=== PATIENT | female | born 1945 | race Caucasian/White ===

== ENCOUNTER → 2017-01-12 | Outpatient (REF) | payer MEDICARE, MEDICAID | LOC: M LAB REF 16:54 | PROVIDERS: ATTEND Podiatrist | DX: L97.412 Non-pressure chronic ulcer of right heel and midfoot with fat layer exposed (principal) ==

== ENCOUNTER → 2017-03-01 | Outpatient (REF) | payer MEDICARE, MEDICAID ==
[~2017-03-01] MED LIST: ASPI81TA85 PO; CART240C3; EZETIMIBE; GLIM1TAB; LORA10TA2; VITA100067 PO
[2017-03-01 17:52] LABS: ALBUMIN/GLOBULIN RATIO 1.29 (1.00-1.93); ALKALINE PHOSPHATASE 81 U/L (45-117); ALT/SGPT 18 U/L (12-78); ANION GAP 8 MEQ/L (8-16); AST/SGOT 13 U/L (15-37); BILIRUBIN,TOTAL 0.8 MG/DL (0.2-1.0); BLOOD UREA NITROGEN 12 MG/DL (7-18); CALCIUM LEVEL 9.4 MG/DL (8.8-10.2); CARBON DIOXIDE LEVEL 26 MEQ/L (21-32); CHLORIDE LEVEL 102 MEQ/L (98-107); CHOLESTEROL LEVEL 270 MG/DL (<200); CREATININE FOR GFR 0.63 MG/DL (0.55-1.02); GLOMERULAR FILTRATION RATE > 60.0 (>39); GLUCOSE, FASTING 138 MG/DL (83-110); POTASSIUM SERUM 4.1 MEQ/L (3.5-5.1); SODIUM LEVEL 136 MEQ/L (136-145); TOTAL PROTEIN 7.1 GM/DL (6.4-8.2); TRIGLYCERIDES LEVEL 160 MG/DL (<150)
== END ==
LOC: M SFHCLERA 10:16
PROVIDERS: ATTEND Physician Assistant
DX: E11.9 Type 2 diabetes mellitus without complications (principal); E78.2 Mixed hyperlipidemia; I10 Essential (primary) hypertension
CPT/HCPCS: 80053; 80061; 82043; 83036; G0463

== ENCOUNTER → 2017-06-01 | Outpatient (REF) | payer MEDICARE, MEDICAID ==
[2017-06-01 11:47] LABS: ALBUMIN 3.7 GM/DL (3.2-5.2); ALBUMIN/GLOBULIN RATIO 1.03 (1.00-1.93); ALKALINE PHOSPHATASE 82 U/L (45-117); ALT/SGPT 19 U/L (12-78); ANION GAP 8 MEQ/L (8-16); AST/SGOT 15 U/L (15-37); BILIRUBIN,TOTAL 0.8 MG/DL (0.2-1.0); BLOOD UREA NITROGEN 17 MG/DL (7-18); CALCIUM LEVEL 9.3 MG/DL (8.8-10.2); CARBON DIOXIDE LEVEL 29 MEQ/L (21-32); CHLORIDE LEVEL 103 MEQ/L (98-107); CHOLESTEROL LEVEL 289 MG/DL (<200); CREATININE FOR GFR 0.66 MG/DL (0.55-1.02); GLOMERULAR FILTRATION RATE > 60.0 (>39); GLUCOSE, FASTING 136 MG/DL (83-110); POTASSIUM SERUM 4.3 MEQ/L (3.5-5.1); SODIUM LEVEL 140 MEQ/L (136-145); TOTAL PROTEIN 7.3 GM/DL (6.4-8.2); TRIGLYCERIDES LEVEL 172 MG/DL (<150)
== END ==
LOC: M SFHCLERA 09:24
PROVIDERS: ATTEND Physician Assistant
DX: E78.2 Mixed hyperlipidemia (principal); E11.9 Type 2 diabetes mellitus without complications
CPT/HCPCS: 80053; 80061; 83036; G0463

== ENCOUNTER 2017-06-12 11:21 | Emergency (ER) | payer MEDICARE, MEDICAID ==
[~2017-06-12] VITALS: Ht 162.6 cm; Wt 63.6 kg
[2017-06-12] MEDS ORDERED: CART240C3 (11:32)
[2017-06-12] MEDS ORDERED: ASPI81TA85 PO (11:32)
[2017-06-12] MEDS ORDERED: VITA100067 PO (11:32)
[2017-06-12] MEDS ORDERED: GLIM1TAB (11:32)
[2017-06-12] MEDS ORDERED: LORA10TA2 (11:32)
[2017-06-12] MEDS ORDERED: EZETIMIBE (11:32)
[2017-06-12 13:39] VITALS: BP 159/72
== END 2017-06-12 13:38 | disposition home or self-care (01) ==
LOC: M ED 11:21
DX: H92.03 Otalgia, bilateral (principal); H61.23 Impacted cerumen, bilateral; I48.91 Unspecified atrial fibrillation; I25.10 Atherosclerotic heart disease of native coronary artery without angina pectoris; I50.9 Heart failure, unspecified; I25.2 Old myocardial infarction; I10 Essential (primary) hypertension; F99 Mental disorder, not otherwise specified; Z87.891 Personal history of nicotine dependence; Z79.82 Long term (current) use of aspirin; Z79.899 Other long term (current) drug therapy; Z88.1 Allergy status to other antibiotic agents; Z88.8 Allergy status to other drugs, medicaments and biological substances

== ENCOUNTER → 2017-12-04 | Outpatient (REF) | payer MEDICARE, MEDICAID ==
[2017-12-04 11:58] LABS: HEMATOCRIT 42.7 % (36.0-47.0); HEMOGLOBIN 14.8 g/dl (12.0-16.0); MEAN CORPUSCULAR HGB CONC 34.7 g/dl (32.0-36.5); MEAN CORPUSCULAR VOLUME 89.3 fl (80.0-96.0); PLATELET COUNT, AUTOMATED 338 10^3/uL (150-450); RED BLOOD COUNT 4.78 10^6/uL (4.00-5.40); RED CELL DISTRIBUTION WIDTH 13.2 % (11.5-14.5)
[2017-12-04 12:26] LABS: ALBUMIN 3.7 GM/DL (3.2-5.2); ALBUMIN/GLOBULIN RATIO 1.09 (1.00-1.93); ALKALINE PHOSPHATASE 80 U/L (45-117); ALT/SGPT 19 U/L (12-78); ANION GAP 9 MEQ/L (8-16); AST/SGOT 12 U/L (7-37); BILIRUBIN,TOTAL 0.6 MG/DL (0.2-1.0); BLOOD UREA NITROGEN 10 MG/DL (7-18); CALCIUM LEVEL 9.4 MG/DL (8.8-10.2); CARBON DIOXIDE LEVEL 26 MEQ/L (21-32); CHLORIDE LEVEL 104 MEQ/L (98-107); CHOLESTEROL LEVEL 253 MG/DL (<200); GLOMERULAR FILTRATION RATE > 60.0 (>39); GLUCOSE, FASTING 151 MG/DL (70-100); HDL CHOLESTEROL 51 MG/DL (>40); LDL CHOLESTEROL 167.4 MG/DL (<100); NON-HDL-C 202 MG/DL; POTASSIUM SERUM 4.9 MEQ/L (3.5-5.1); SODIUM LEVEL 139 MEQ/L (136-145); TOTAL PROTEIN 7.1 GM/DL (6.4-8.2); TRIGLYCERIDES LEVEL 173 MG/DL (<150)
[2017-12-04 12:46] LABS: ESTIMATED AVERAGE GLUCOSE 157 MG/DL (60-110); HEMOGLOBIN A1c 7.1 %
[2017-12-04 12:53] LABS: CREATININE, URINE 24.4 MG/DL; MALB URINE SIEMENS < 5.0 MG/L; MAU/CREAT RATIO 20.4 MCG/MG (0.0-30.0)
== END ==
LOC: M SFHCLERA 09:26
DX: E78.2 Mixed hyperlipidemia (principal); I10 Essential (primary) hypertension; E11.9 Type 2 diabetes mellitus without complications
CPT/HCPCS: 84443

== ENCOUNTER → 2018-05-16 | Outpatient (REF) | payer MEDICARE, MEDICAID ==
[2018-05-16 13:30] LABS: ESTIMATED AVERAGE GLUCOSE 146 MG/DL (60-110); HEMOGLOBIN A1c 6.7 %
[2018-05-16 13:37] LABS: ALBUMIN 3.7 GM/DL (3.2-5.2); ALKALINE PHOSPHATASE 89 U/L (45-117); ALT/SGPT 15 U/L (12-78); ANION GAP 8 MEQ/L (8-16); AST/SGOT 12 U/L (7-37); BILIRUBIN,TOTAL 0.7 MG/DL (0.2-1.0); BLOOD UREA NITROGEN 12 MG/DL (7-18); CALCIUM LEVEL 9.4 MG/DL (8.8-10.2); CARBON DIOXIDE LEVEL 28 MEQ/L (21-32); CHLORIDE LEVEL 103 MEQ/L (98-107); CHOLESTEROL LEVEL 233 MG/DL (<200); CREATININE FOR GFR 0.65 MG/DL (0.55-1.30); GLOMERULAR FILTRATION RATE > 60.0 (>39); GLUCOSE, FASTING 140 MG/DL (70-100); HDL CHOLESTEROL 52 MG/DL (>40); LDL CHOLESTEROL 151.6 MG/DL (<100); NON-HDL-C 181 MG/DL; POTASSIUM SERUM 4.5 MEQ/L (3.5-5.1); SODIUM LEVEL 139 MEQ/L (136-145); TOTAL PROTEIN 7.4 GM/DL (6.4-8.2); TRIGLYCERIDES LEVEL 147 MG/DL (<150)
== END ==
LOC: M SFHCPLAZ 11:48
DX: I10 Essential (primary) hypertension (principal); E11.9 Type 2 diabetes mellitus without complications; E78.2 Mixed hyperlipidemia
CPT/HCPCS: 80053

== ENCOUNTER → 2018-07-03 | Outpatient (REF) | payer MEDICARE, MEDICAID | LOC: M LAB REF 09:11 | DX: L97.529 Non-pressure chronic ulcer of other part of left foot with unspecified severity (principal); E11.621 Type 2 diabetes mellitus with foot ulcer; M65.872 Other synovitis and tenosynovitis, left ankle and foot | CPT/HCPCS: 88304 ==

== ENCOUNTER → 2018-12-10 | Outpatient (REF) | payer MEDICARE, MEDICAID ==
[~2018-12-10] MED LIST changes: +LORA-243; -LORA10TA2
== END ==
LOC: M LAB REF 17:12
PROVIDERS: ATTEND Surgery
DX: M87.074 Idiopathic aseptic necrosis of right foot (principal); E11.621 Type 2 diabetes mellitus with foot ulcer

== ENCOUNTER → 2019-01-22 | Outpatient (REF) | payer MEDICARE, MEDICAID ==
[2019-01-22 10:44] LABS: BASO # 0.1 10^3/uL (0.0-0.2); EOS # 0.3 10^3/uL (0.0-0.50); EOS % 3.3 % (0.0-3.0); HEMATOCRIT 42.8 % (36.0-47.0); HEMOGLOBIN 14.2 g/dl (12.0-15.5); LYMPH # 2.6 10^3/uL (1.5-4.5); LYMPH % 28.1 % (24.0-44.0); MEAN CORPUSCULAR HEMOGLOBIN 30.5 pg (27.0-33.0); MEAN CORPUSCULAR HGB CONC 33.2 g/dl (32.0-36.5); MONO # 0.7 10^3/uL (0.0-0.8); MONO % 7.5 % (0.0-5.0); NEUTROPHILS # 5.4 10^3/uL (1.8-7.7); NEUTROPHILS % 59.8 % (36.0-66.0); PLATELET COUNT, AUTOMATED 379 10^3/uL (150-450); RED BLOOD COUNT 4.65 10^6/uL (4.00-5.40); WHITE BLOOD COUNT 9.1 10^3/uL (4.0-10.0)
[2019-01-22 11:21] LABS: ALBUMIN 3.6 GM/DL (3.2-5.2); ALT/SGPT 16 U/L (12-78); BILIRUBIN,TOTAL 0.6 MG/DL (0.2-1.0); BLOOD UREA NITROGEN 11 MG/DL (7-18); CALCIUM LEVEL 9.4 MG/DL (8.8-10.2); CARBON DIOXIDE LEVEL 26 MEQ/L (21-32); CHLORIDE LEVEL 105 MEQ/L (98-107); CREATININE FOR GFR 0.64 MG/DL (0.55-1.30); GLOMERULAR FILTRATION RATE > 60.0 (>39); GLUCOSE, FASTING 148 MG/DL (70-100); POTASSIUM SERUM 4.4 MEQ/L (3.5-5.1); SODIUM LEVEL 138 MEQ/L (136-145); TOTAL PROTEIN 6.7 GM/DL (6.4-8.2)
[2019-01-22 11:44] LABS: HEMOGLOBIN A1c 7.2 %
== END ==
LOC: M SFHCPLAZ 07:52
PROVIDERS: ATTEND Physician Assistant Medical
DX: E11.621 Type 2 diabetes mellitus with foot ulcer (principal); E78.2 Mixed hyperlipidemia; I10 Essential (primary) hypertension; L97.509 Non-pressure chronic ulcer of other part of unspecified foot with unspecified severity

== ENCOUNTER → 2019-05-05 | Outpatient (CLI) | payer MEDICARE, MEDICAID ==
--- NOTE | 2019-05-05 14:39 | REP ---
Bilateral lower extremity arterial duplex Doppler ultrasound for evaluation of right foot and nonhealing ulcer: Right lower extremity: Brachial systole: 145 mmHg. Dorsalis pedis systole: 84 mmHg. BLADE CHANGER asystole: 96 mmHg. JANA: 0.64 JUANA peak flow velocity: 270 mm/sac. Monophasic. EIA peak flow velocity: 274 mm/second. Biphasic. Distal aorta peak flow velocity 75 mm/second. Peak Systolic Phasicity Velocity JOURNAL BOX INSPECTOR 194 monophasic Profunda 119 monophasic SFA prox 38 monophasic SFA mid 42 monophasic SFA dist 42 monophasic Pop 43 monophasic EDGAR prox 10 monophasic Tib/P tr 50 monophasic BLADE CHANGER pr 34 monophasic BLADE CHANGER dst 50 monophasic EDGAR dst 825 monophasic There is monophasic flow throughout the right lower extremity. There is increased flow velocity from the distal aorta into the common iliac artery. There is a very small right SFA with a revascularizing vessel at the distal SFA. There is a very slow flow in the proximal right EDGAR . Left lower extremity: Brachial systole: 148 mmHg. Dorsalis pedis systole: 110 mmHg. BLADE CHANGER systole: 110 mmHg. JANA: 0.64. JUANA peak flow velocity: 136 mm/sac. Biphasic. EIA peak flow velocity: 168 mm/sac. Biphasic. Distal aortic flow velocity 75 mm/sac. Peak Systolic Phasicity Velocity JOURNAL BOX INSPECTOR 156 biphasic Profunda 97 biphasic SFA prox 94 biphasic SFA mid 160 biphasic SFA dist 123 biphasic Pop 70 biphasic EDGAR prox 25 biphasic Tib/P tr 849 biphasic BLADE CHANGER pr 37 biphasic BLADE CHANGER dst 46 biphasic EDGAR dst 27 biphasic The there is biphasic flow throughout the left lower extremity. Moderate plaque is seen throughout, however there is no significant stenosis. There is mild disease in the left JUANA and EIA. There is a small left SFA also. Electronically Signed by Dani Ochoa MD 05/05/2019 02:30 P
== END ==
LOC: M RAD 11:16
PROVIDERS: ATTEND Physician Assistant
DX: E11.621 Type 2 diabetes mellitus with foot ulcer (principal); L97.512 Non-pressure chronic ulcer of other part of right foot with fat layer exposed; S91.105A Unspecified open wound of left lesser toe(s) without damage to nail, initial encounter; Y92.9 Unspecified place or not applicable; Y93.9 Activity, unspecified

== ENCOUNTER → 2019-06-03 | Outpatient (POV) | payer MEDICARE, MEDICAID ==
[~2019-06-03] VITALS: Ht 162.6 cm; Wt 62.7 kg
[2019-06-03 11:00] VITALS: BP 136/65
--- NOTE | 2019-06-04 13:19 | IRCOV ---
[facility] IR Consult Office Visit IR Consult Office Visit DATE: Jun 03, 2019 REASON FOR CONSULTATION/CHIEF COMPLAINT: Right medial mid foot wound with delayed healing. HISTORY OF PRESENT ILLNESS: 73-year-old female with hypertension, atrial fibrillation and diabetes presents with difficult to heal right plantar midfoot wound. Currently under the care of wound care services. Recent abnormal arterial ultrasound and JANA 0.64. 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 No prior amputations. History of left lower extremity wounds which are now closed. Patient complains of pain at the bottom of the feet with walking. No claudicatio n symptoms. No rest pain. No chest pain or shortness of breath. No fevers or chills. No orthopnea or paroxysmal nocturnal dyspnea. Patient takes 81 mg of aspirin and statin. No CELESTE inhibitor. Reports good diet. Mild exercise. ALLERGIES: Please see below. HOME MEDICATIONS: Please see below. PAST MEDICAL HISTORY: Hypertension Atrial fibrillation Pacemaker Diabetes PAST SURGICAL HISTORY: Pacemaker Right foot wound debrided and wound VAC FAMILY HISTORY: Nonsignificant. SOCIAL HISTORY: Lives alone. Independent with activities of daily living. Nonsmoker. No significant alcohol. No drugs. REVIEW OF SYSTEMS: Otherwise negative. PHYSICAL EXAMINATION: VITAL SIGNS: Please see below. GENERAL APPEARANCE: Appears well. Comfortable at rest. HEENT: No scleral icterus. RESPIRATORY: Symmetric breath sounds. CARDIOVASCULAR: Normal rate. ABDOMEN: Nondistended. Soft nontender. EXTREMITIES: Right lower extremity: Wound plantar foot; small healing. Femoral pulse 2+ popliteal pulse nonpalpable. DP/PT nonpalpable. Warm to touch. No gangrene. Left lower extremity: Warm to touch. Femoral pulse 2+ popliteal pulses 1+ DP/PT + no gangrene. NEUROLOGICAL: Alert and oriented. PSYCHIATRIC: Appropriate to circumstance. LABORATORY DATA: Please see below. Imaging: I personally reviewed the ultrasound of the bilateral lower extremities from April 2019. SFA stenosis with monophasic waveforms. In comparison left lower extremity biphasic throughout. ASSESSMENT/PLAN: 74-year-old female with diabetes and hypertension presenting with nonhealing right foot wound and abnormal arterial ultrasound. I agree she would benefit from diagnostic angiogram and intervention as appropriate, all in the same session. We will schedule her for the procedure to be done under moderate sedation. I spent 30 minutes in consultation with the patient. Thank you for this referral. Allergies Coded Allergies: MS - Ciprofloxacin (Verified Allergy, Intermediate, pt forgot, 06/12/17) MS - Metformin and Related (Verified Allergy, Intermediate, anxiety, 06/12/17) Home Medications Scheduled Aspirin (Aspir 81), 81 MG PO DAILY, (Reported) Vitamin D (Vitamin D), 4,000 UNIT PO DAILY, (Reported) Miscellaneous Medications Diltiazem HCl (Cartia Xt), (Reported) Glimepiride (Glimepiride), (Reported) Loratadine (Loratadine), (Reported) [Ezetimibe], (Reported) VS, I&O, 24H, Fishbone Vital Signs/I&O Vital Signs Date Time Temp Pulse Resp B/P (MAP) Pulse Ox O2 Delivery O2 Flow Rate FiO2 06/03/19 11:00 97.5 90 16 136/65 (88) 97 LORRIE ROMEO MD Jun 04, 2019 13:19
== END ==
LOC: M IRPOV 10:38
PROVIDERS: ATTEND Radiology Diagnostic Radiology
DX: I10 Essential (primary) hypertension (principal); I48.91 Unspecified atrial fibrillation; E11.622 Type 2 diabetes mellitus with other skin ulcer; R93.89 Abnormal findings on diagnostic imaging of other specified body structures; Z79.82 Long term (current) use of aspirin; Z95.0 Presence of cardiac pacemaker

== ENCOUNTER → 2019-06-12 | Outpatient (REF) | payer MEDICARE, MEDICAID ==
[2019-06-12 11:07] LABS: ALBUMIN 3.6 GM/DL (3.2-5.2); ALT/SGPT 16 U/L (12-78); BILIRUBIN,TOTAL 0.6 MG/DL (0.2-1.0); BLOOD UREA NITROGEN 12 MG/DL (7-18); CALCIUM LEVEL 9.6 MG/DL (8.8-10.2); CARBON DIOXIDE LEVEL 28 MEQ/L (21-32); CHLORIDE LEVEL 105 MEQ/L (98-107); CHOLESTEROL LEVEL 224 MG/DL (<200); CHOLESTEROL RISK RATIO 4.226 (<5); CREATININE FOR GFR 0.75 MG/DL (0.55-1.30); GLOMERULAR FILTRATION RATE > 60.0 (>39); GLUCOSE, FASTING 149 MG/DL (70-100); HDL CHOLESTEROL 53 MG/DL (>40); LDL CHOLESTEROL 144 MG/DL (<100); NON-HDL-C 171 MG/DL; POTASSIUM SERUM 4.8 MEQ/L (3.5-5.1); SODIUM LEVEL 139 MEQ/L (136-145); TRIGLYCERIDES LEVEL 135 MG/DL (<150)
[2019-06-12 11:18] LABS: PTH INTACT 83.8 PG/ML (18.5-88.0); TOTAL 25(OH) VITAMIN D 57.9 NG/ML (30.0-100.0)
[2019-06-12 12:50] LABS: HEMOGLOBIN A1c 6.6 %
== END ==
LOC: M SFHCPLAZ 08:58
PROVIDERS: ATTEND Physician Assistant Medical
DX: E11.621 Type 2 diabetes mellitus with foot ulcer (principal); E78.2 Mixed hyperlipidemia; E55.9 Vitamin D deficiency, unspecified; Z79.899 Other long term (current) drug therapy; Z79.82 Long term (current) use of aspirin

== ENCOUNTER → 2019-06-26 | Outpatient (CLI) | payer MEDICARE, MEDICAID ==
[~2019-06-26] MED LIST changes: +FLON1SPR NARES; -GLIM1TAB; +GLIM1TAB4; +HEPARIN 1,000 UNITS/ML 10ML VIAL (FOR RADIOLOGY& DIALYSIS ONLY) As Ordered ONE; +ISOVUE-300 61% 50ML VIAL (Q9967) As Ordered ONE; +LIDOCAINE 1% MDV 20ML VIAL As Ordered ONE; +MIDAZOLAM INJ 2 MG/2 ML VIAL (J2250) As Ordered ONE; +diphenhydrAMINE INJ 50MG/ML VIAL (J1200) As Ordered ONE; +fentaNYL 100 MCG/2 ML INJECTION (J3010) As Ordered ONE
--- NOTE | 2019-06-26 07:28 | IRHP ---
[facility] IR Pre-Procedure H & P General Date of Service: Jun 26, 2019 Procedure: Same Day Surgery Interval History and Physical I have seen the patient and reviewed last H & P performed within 30 days. There is no significant interval change. History of Present Illness Chief Complaint The patient is a 74-year-old female admitted with a reason for visit of PAD. PRE-PROCEDURE DIAGNOSIS: PAD HEART: normal rate. LUNGS: normal breathing at rest. ASA Classification ASA Classification: III-Severe systemic dis. Mallampati Score: II NPO: Yes Problems with prior sedation: No Obstructive Sleep Apnea: No Plan moderate sedation Allergies Coded Allergies: MS - Ciprofloxacin (Verified Allergy, Intermediate, pt forgot, 06/12/17) MS - Metformin and Related (Verified Allergy, Intermediate, anxiety, 06/12/17) Home Medications Scheduled Aspirin (Aspir 81), 81 MG PO DAILY, (Reported) Vitamin D (Vitamin D), 4,000 UNIT PO DAILY, (Reported) Miscellaneous Medications Diltiazem HCl (Cartia Xt), (Reported) Glimepiride (Glimepiride), (Reported) Loratadine (Loratadine), (Reported) [Ezetimibe], (Reported) LORRIE ROMEO MD Jun 26, 2019 07:28
--- NOTE | 2019-06-26 09:27 | POST-OPPD ---
Postoperative Procedure Note Date Of Procedure: Jun 26, 2019 Time Of Procedure: 09:24 PREOPERATIVE DIAGNOSIS: non healing right lower extremity wound POSTOPERATIVE DIAGNOSIS: non healing right lower extremity wound FINDINGS: SFA occlusion. patent popliteal artery and 3 vessel run off to foot PROCEDURE: left groin access. right leg angiogram. failed antegrade sfa recanalization. patient will be bought back for retrograde access. SURGEON: sofiya ANESTHESIA: mod sed ESTIMATED BLOOD LOSS: < 5 ml COMPLICATIONS: none POSTOPERATIVE CONDITION: stable LORRIE ROMEO MD Jun 26, 2019 09:27
[2019-06-26 14:00] VITALS: BP 154/65
--- NOTE | 2019-06-26 16:21 | REP ---
IR right leg angiogram. IR pelvic angiogram. Selective right iliac artery catheterization. Selective right common femoral artery catheterization. IR diagnostic below-knee runoff. IR attempted antegrade SFA recanalization. Clinical Information: Non healing right lower extremity wounds. Physician: Dr Castillo.Procedure: The patient was advised of the benefits, risks, and alternatives of the procedure and informed consent was obtained.A time out was performed with verification of the patient's name, MRN, site of procedure, and type of procedure to be performed. The patient was positioned in the supine position on the angiographic table. The site was prepped and draped in the usual sterile fashion.Moderate sedation was performed by the physician including the presence of an independent trained observer that assisted in monitoring the patient's level of consciousness and physiological status. Following the administration of Fentanyl and Versed, the physician spent 60 minutes of continuous [id number]-gd-[id number] time with the patient. A policy director radiograph reveals no gross abnormality. The left femoral artery was accessed with a micropuncture kit. A [employer] wire was advanced into the aorta. The micropuncture sheath was exchanged over the wire for a a 6-Lithuanian vascular sheath. A 5-Lithuanian flush catheter was advanced over the wire and used to catheterize the abdominal aorta. A pelvic arteriogram was performed. This demonstrates atherosclerotic dilation of the infrarenal abdominal aorta. Patent bilateral common iliac, internal iliac and external iliac arteries. Patent left superficial femoral artery and profunda femoris. Occluded right superficial femoral artery. Patent right profunda femoris. A Glidewire was advanced through the flush catheter and used to gain up and over access into the right common iliac artery. The short sheath was exchanged over the wire for a a long sheath which was placed up and over the aortic bifurcation, into the left common iliac artery. A right leg angiogram was performed and this demonstrates patent right common femoral artery. Complete occlusion of the right superficial femoral artery and enlarged collaterals in the thigh. Patent profunda femoris. With the sheath in this location, follow-up arteriogram was performed further down the leg. This demonstrates reconstitution of the popliteal artery via numerous collaterals. Patent proximal, mid and distal popliteal artery. Patent proximal anterior tibial, tibioperoneal trunk, peroneal and posterior tibial artery. A below knee runoff angiogram was performed and this demonstrates patent three-vessel runoff to the right foot. There is slow flow in the runoff vessels due to complete SFA occlusion. A glide cath in conjunction with a Glidewire was used to try to recanalized the occluded superficial femoral artery. Contrast injected through the diagnostic catheter confirms catheterization of a tiny collateral vessel and not the poarch SFA. There is extravasation of contrast in the soft tissues. The diagnostic catheter was retracted back and a follow-up arteriogram was performed which demonstrates preserved flow in the right common femoral artery and collateral vessels in the thigh. A follow-up arteriogram was performed in the distal thigh and below knee and this demonstrates preserved flow in the popliteal artery and three runoff vessels. The catheter was removed. The long sheath was exchanged over the wire for a short sheath. A 6-Lithuanian Mynx device was used to close the left groin arteriotomy and the sheath was removed. Hemostasis achieved and a sterile dressing was applied to the site. Patient tolerated the procedure well. The patient was transferred to PRU in stable condition. Prior to discharge, the patient's thigh is normal in color, soft, and nontender. Complications: None. Estimated blood loss: Less than 5 ml. Impression: 1. Right leg angiogram demonstrates complete superficial femoral artery occlusion. Distal reconstitution of the popliteal artery via collaterals. Patent good sized popliteal artery and patent three-vessel runoff to the right foot. 2. Unsuccessful antegrade SFA recanalization. The patient will be brought back for retrograde access and attempt at retrograde recanalization. Thank you this referral. Electronically Signed by Darlene Castillo MD 06/26/2019 04:19 P
== END ==
LOC: M IRPRO 07:11
PROVIDERS: ATTEND Radiology Diagnostic Radiology
DX: I70.239 Atherosclerosis of native arteries of right leg with ulceration of unspecified site (principal); I70.92 Chronic total occlusion of artery of the extremities; Z88.1 Allergy status to other antibiotic agents; Z88.8 Allergy status to other drugs, medicaments and biological substances; Z79.82 Long term (current) use of aspirin
CPT/HCPCS: 36245; 75716; 75774; 99152; 99153; C1760; C1769; C1887; C1894; G0269; J1200; J2250; J3010; Q9967

== ENCOUNTER → 2019-07-07 | Outpatient (CLI) | payer MEDICARE, MEDICAID ==
[~2019-07-07] MED LIST changes: +CLOPIDOGREL 75 MG TAB PO SCH; +GLIM1TAB2; -GLIM1TAB4; +PERCOCET 5MG/325MG TAB As Ordered ONE
--- NOTE | 2019-07-07 07:17 | IRHP ---
[facility] IR Pre-Procedure H & P General Date of Service: Jul 07, 2019 Procedure: Same Day Surgery Interval History and Physical I have seen the patient and reviewed last H & P performed within 30 days. There is no significant interval change. History of Present Illness Chief Complaint The patient is a 74-year-old female admitted with a reason for visit of Sfa Occlusion. PRE-PROCEDURE DIAGNOSIS: PAD HEART: normal rate. LUNGS: normal breathing at rest. ASA Classification ASA Classification: III-Severe systemic dis. Mallampati Score: I NPO: Yes Problems with prior sedation: No Obstructive Sleep Apnea: No Plan moderate sedation Allergies Coded Allergies: MS - Ciprofloxacin (Verified Allergy, Intermediate, pt forgot, 06/12/17) MS - Metformin and Related (Verified Allergy, Intermediate, anxiety, 06/12/17) Home Medications Scheduled Aspirin (Aspir 81), 81 MG PO DAILY, (Reported) Vitamin D (Vitamin D), 4,000 UNIT PO DAILY, (Reported) Miscellaneous Medications Diltiazem HCl (Cartia Xt), (Reported) Glimepiride (Glimepiride), (Reported) Loratadine (Loratadine), (Reported) [Ezetimibe], (Reported) VS, I&O, 24H, Fishbone Vital Signs/I&O Vital Signs Date Time Temp Pulse Resp B/P (MAP) Pulse Ox O2 Delivery O2 Flow Rate FiO2 07/07/19 07:04 97.1 73 18 95 Room Air LORRIE ROMEO MD Jul 07, 2019 07:17
--- NOTE | 2019-07-07 14:47 | REP ---
IR right leg angiogram. IR Selective right iliac artery catheterization. IR Recanalization of chronic right superficial femoral artery occlusion. IR right Superficial femoral artery angioplasty. IR right popliteal artery angioplasty. IR right popliteal artery stenting. IR right superficial femoral artery stenting. IR Diagnostic right below-knee runoff. IR Moderate sedation. Clinical Information: Non healing right lower extremity wounds. Peripheral arterial disease. Physician: Dr Castillo.Procedure: The patient was advised of the benefits, risks, and alternatives of the procedure and informed consent was obtained.A time out was performed with verification of the patient's name, MRN, site of procedure, and type of procedure to be performed. The patient was positioned in the supine position on the angiographic table. The site was prepped and draped in the usual sterile fashion.Moderate sedation was performed by the physician including the presence of an independent trained observer who assisted in monitoring the patient's level of consciousness and physiological status. Following the administration of Fentanyl and Versed, the physician spent 120 minutes of continuous [id number] time with the patient. A dielectric machine operator radiograph reveals no gross abnormality. The left femoral artery was accessed with a micropuncture kit. A [employer] wire was advanced into the aorta. The micropuncture sheath was exchanged over the wire for a a 6-Cambodian vascular sheath. A 5-Cambodian flush catheter was advanced over the wire and used to catheterize the abdominal aorta. The catheter in conjunction with a Glidewire was used to gain up and over access into the right common femoral artery. The flush catheter was exchanged over the wire for a Navicross crossing catheter. The catheter in conjunction with the wire was used to catheterize in the left upper thigh. An arteriogram was performed and this demonstrates catheterization of a large thigh collateral. The superficial femoral artery is not seen. This catheter was retracted back into the external iliac artery. An arteriogram was performed and this demonstrates large branches of profunda femoris and other collaterals. The origin of the superficial femoral artery is undetectable. The Navicross in conjunction with a Glidewire was used to probe the origin of the superficial femoral artery. However, repeatedly falls into large collaterals and profunda femoris branches. Therefore a micro catheter and micro wire were inserted through the diagnostic catheter and used to subselectivily catheterize a third order branch in the upper thigh. An Arteriogram was performed and this demonstrates catheterization of a collateral branch. There is reconstitution of the main popliteal artery from this collateral. The micro catheter and micro wire were retracted and used to sub selectively catheterize a different branch in the thigh. An arteriogram was performed and this demonstrates catheterization of a collateral vessel. No ramona SFA or popliteal supply from this collateral. The micro catheter and micro wire were removed. The navicross catheter in conjunction with a Glidewire was again used to probe the origin of the superficial femoral artery. The glide wire slid into a vessel along expected course of SFA and the catheter was advanced over the wire. An arteriogram was performed from this point and demonstrates catheterization of a suitable size vessel which does not appear to be a collateral and follows the path of the SFA. There is complete occlusion from this point forward. No extravasation in the thigh. A micro catheter and micro wire were then advanced through the diagnostic catheter and used to recanalize the mid and distal superficial femoral artery. The micro wire was removed, an arteriogram was performed through the micro catheter which demonstrates catheterization of the distal popliteal artery. Good forward flow in the distal popliteal artery. No extravasation in the thigh. A follow-up arteriogram was performed below the knee and demonstrates good three-vessel runoff from the popliteal artery all the way to the foot. The crossing catheter was advanced over the micro catheter however met resistance in the chronically occluded mid and distal superficial femoral artery. Therefore, the crossing catheter and micro catheter were removed over a micro wire. A 4 x 220 mm Simone balloon was advanced over the wire under fluoroscopy guidance and used to angioplasty the distal superficial femoral artery and popliteal artery. Heparin was administered. The balloon was then deflated under fluoroscopy guidance and retracted into the mid and proximal superficial femoral artery. Angioplasty was performed through the mid and proximal superficial femoral artery. The balloon was then deflated and retracted back to the common femoral artery. Angioplasty was performed of the proximal superficial femoral artery and common femoral artery. The balloon was then deflated and removed over the wire under fluoroscopy guidance. The crossing catheter was advanced over the wire under fluoroscopy guidance into the popliteal artery. The micro wire was removed and an 035 wire was advanced through the diagnostic catheter into the popliteal artery. The short vascular sheath was removed over the wire and a long vascular sheath was advanced over the wire under fluoroscopy guidance into the left common femoral artery. Post angioplasty arteriogram was performed in the proximal thigh. This demonstrates there is now flow within the proximal and mid superficial femoral artery. No dissection, spasm or acute injury. No extravasation. Further follow-up arteriogram was performed down the leg with the sheath in the same location in the left common femoral artery. This demonstrates flow in the mid and distal superficial femoral artery and popliteal artery. No extravasation, spasm, distal emboli or extravasation. Patent proximal runoff vessels. A 6 x 120 mm Cortney stent was then advanced under fluoroscopy guidance over the wire and positioned in the distal superficial femoral artery/proximal popliteal artery. This was deployed under fluoroscopy guidance. A second 6 x 120 mm cortney stent was advanced over the wire under fluoroscopy guidance, overlapped with the original stent and deployed in the mid superficial femoral artery. A third 6 x 120 mm balloon Cortney stent was advanced over the wire under fluoroscopy guidance and deployed in the proximal superficial femoral artery. The origin of the profunda femoris was spared. A 6 x 200 mm [place] angioplasty balloon was then advanced over the wire under fluoroscopy guidance into the distal SFA proximal popliteal artery. This was used to angioplasty within the self-expanding stent and popliteal artery. The balloon was deflated and retracted back to the mid and proximal SFA. The balloon was used to angioplasty through the stents in the superficial femoral artery. Further heparin was administered. The balloon was deflated under fluoroscopy guidance and used to angioplasty within the stent in the proximal superficial femoral artery and common femoral artery. The balloon was deflated under fluoroscopy guidance and removed over the wire. Post stent and post angioplasty arteriograms were performed of the left leg. This demonstrates good forward flow in the superficial femoral artery and profunda femoris. No arterial injury, extravasation or distal emboli. A follow-up arteriogram was performed further down the leg and this demonstrates good forward flow in the mid and distal superficial femoral artery and the popliteal artery. No arterial spasm, dissection, extravasation or distal emboli. A final below-knee runoff was performed with the sheath in the same location in the common femoral artery and this demonstrates good flow in the three runoff vessels below the knee all the way to the foot. No distal emboli. No extravasation. The sheath was removed over the wire and exchanged for a short 6-Cambodian vascular sheath. The wire was removed. A 6-Cambodian Mynx device was deployed per protocol. Hemostasis achieved and a sterile dressing was applied to the site. Patient tolerated the procedure well and was transferred to PRU in stable condition. Complications: None. Estimated blood loss: Less than 5 ml. Impression: 1. 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 2. Successful recanalization of the right superficial femoral artery and proximal popliteal artery. 3. Successful angioplasty of the right superficial femoral artery and popliteal artery. 4. Successful stent placement in the right superficial femoral artery. 5. Preserved three-vessel runoff to the right foot. 6. Patient to follow-up in IR clinic in 2 weeks. Thank you for this referral. Electronically Signed by Darlene Castillo MD 07/07/2019 02:45 P
[2019-07-07 15:30] VITALS: BP 112/60
--- NOTE | 2019-07-08 14:29 | POST-OPPD ---
Postoperative Procedure Note Date Of Procedure: Jul 07, 2019 Time Of Procedure: 14:29 please see full report under imaging tab LORRIE ROMEO MD Jul 08, 2019 14:29
== END ==
LOC: M IRPRO 06:28
PROVIDERS: ATTEND Radiology Diagnostic Radiology
DX: I70.92 Chronic total occlusion of artery of the extremities (principal); Z79.899 Other long term (current) drug therapy; Z79.82 Long term (current) use of aspirin
CPT/HCPCS: 37226; 75710; 99152; 99153; C1725; C1760; C1769; C1874; C1887; C1894; J1200; J2250; J3010; Q9967

== ENCOUNTER → 2019-07-22 | Outpatient (POV) | payer MEDICARE, MEDICAID ==
[~2019-07-22] VITALS: Ht 162.6 cm; Wt 62.7 kg
[~2019-07-22] MED LIST changes: -CLOPIDOGREL 75 MG TAB PO SCH; -HEPARIN 1,000 UNITS/ML 10ML VIAL (FOR RADIOLOGY& DIALYSIS ONLY) As Ordered ONE; -ISOVUE-300 61% 50ML VIAL (Q9967) As Ordered ONE; -LIDOCAINE 1% MDV 20ML VIAL As Ordered ONE; -MIDAZOLAM INJ 2 MG/2 ML VIAL (J2250) As Ordered ONE; -PERCOCET 5MG/325MG TAB As Ordered ONE; -diphenhydrAMINE INJ 50MG/ML VIAL (J1200) As Ordered ONE; -fentaNYL 100 MCG/2 ML INJECTION (J3010) As Ordered ONE
[2019-07-22 13:50] VITALS: BP 165/71
[2019-07-22 14:20] VITALS: BP 130/68
--- NOTE | 2019-07-23 09:50 | IRPN ---
[facility] IR Progress Note IR Progress Note DATE: Jul 22, 2019 FOLLOW-UP: 2 weeks status post right leg revascularization, angioplasty and stenting of superficial femoral artery and popliteal artery. Patient has since graduated from wound care with complete healing of the right lower extremity wound. Patient is doing well. No pain, swelling, fevers or chills. ON EXAMINATION: Left groin access site, no swelling, no pulsatile mass, no hematoma. Right lower extremity is slightly more edematous than the left lower extremity; this is chronic. No wounds. Warm to touch. Skin normal. Femoral pulse 2+ popliteal pulse 2+ DP/PT +. Left lower extremity: No edema. No wounds. Warm to touch. Skin normal. Femoral pulse 2+ popliteal pulse 2+ DP/PT + IMPRESSION: Doing well status post right leg revascularization. No pain or wounds in the left leg. Advised patient on good diet, exercise program, blood pressure control, cholesterol control, compliance with aspirin, Plavix, statins and antihypertensives. Will follow up in 6 months time or as needed. Thank you for this referral. Allergies Coded Allergies: erythromycin base (Verified Allergy, Severe, HIVES AND THROAT CLOSES, 07/04/19) Penicillins (Verified Allergy, Intermediate, THROAT CLOSES AND HIVES, 07/04/19) vancomycin (Verified Allergy, Intermediate, RIGORS, 07/04/19) sulfamethoxazole (Verified Adverse Reaction, Intermediate, KIDNEY DAMAGE, 07/04/19) trimethoprim (Verified Adverse Reaction, Intermediate, KIDNEY DAMAGE, ) VS,Fishbone, I+O VS, Fishbone, I+O Vital Signs Date Time Temp Pulse Resp B/P (MAP) Pulse Ox O2 Delivery O2 Flow Rate FiO2 07/22/19 10:30 97.2 68 18 118/51 (73) 93 Room Air Allergies Coded Allergies: MS - Ciprofloxacin (Verified Allergy, Intermediate, pt forgot, 06/12/17) MS - Metformin and Related (Verified Allergy, Intermediate, anxiety, 06/12/17) VS,Fishbone, I+O VS, Fishbone, I+O Vital Signs Date Time Temp Pulse Resp B/P (MAP) Pulse Ox O2 Delivery O2 Flow Rate FiO2 07/22/19 14:20 130/68 (88) 07/22/19 13:50 98.5 90 16 96 Room Air LORRIE ROMEO MD Jul 23, 2019 09:50
== END ==
LOC: M IRPOV 13:57
PROVIDERS: ATTEND Radiology Diagnostic Radiology
DX: Z48.812 Encounter for surgical aftercare following surgery on the circulatory system (principal); Z88.0 Allergy status to penicillin; Z88.1 Allergy status to other antibiotic agents; Z88.8 Allergy status to other drugs, medicaments and biological substances

== ENCOUNTER → 2019-10-21 | Outpatient (POV) | payer MEDICARE, MEDICAID ==
[~2019-10-21] VITALS: Ht 162.6 cm; Wt 62.3 kg
[~2019-10-21] MED LIST changes: -GLIM1TAB2; +GLIM1TAB4
[2019-10-21 14:35] VITALS: BP 138/69
--- NOTE | 2019-10-22 11:40 | IRPN ---
[facility] IR Progress Note IR Progress Note DATE: Oct 21, 2019 FOLLOW-UP: Status post right leg revascularization by myself in June 2019 for nonhealing ulcers. Patient doing well. Denies intermittent claudication. Denies rest pain. Denies new ulcers. Describes mild swelling in the right leg and feels this is asymmetric to the left leg. ON EXAMINATION: Right lower extremity: Skin color normal, warm to touch. Femoral pulse 2+ popliteal pulse 2+ DP PT 2+ . no visible varicosities. Left lower; skin normal. Warm to touch. Femoral pulse 2+ popliteal pulse 2+ DP PT +. IMPRESSION: Doing well status post right leg revascularization for nonhealing ul cers. No pain or new ulcers. Continue aspirin and Plavix. Patient is on antihypertensive, antidiabetic medication and cholesterol medication. We discussed importance of good diet, diabetes control, exercise and good control of cholesterol. Continue annual follow-up. For the leg swelling, will obtain a venous reflux study to look for venous reflux. Thank you for this referral CC Dr. Allen Allergies Coded Allergies: MS - Ciprofloxacin (Verified Allergy, Intermediate, pt forgot, 06/12/17) MS - Metformin and Related (Verified Allergy, Intermediate, anxiety, 06/12/17) VS,Fishbone, I+O VS, Fishbone, I+O Vital Signs Date Time Temp Pulse Resp B/P (MAP) Pulse Ox O2 Delivery O2 Flow Rate FiO2 10/21/19 14:35 97.7 81 18 138/69 (92) 96 Room Air LORRIE ROMEO MD Oct 22, 2019 11:40
== END ==
LOC: M IRPOV 13:45
PROVIDERS: ATTEND Radiology Diagnostic Radiology
DX: I73.9 Peripheral vascular disease, unspecified (principal)

== ENCOUNTER → 2019-10-29 | Outpatient (CLI) | payer MEDICARE, MEDICAID ==
--- NOTE | 2019-10-29 14:18 | REP ---
Clinical: Superficial varicosities. Technique: Real time donis scale and color Doppler evaluation of the right lower extremity using linear high frequency transducer including reflux evaluation. Findings: Evaluation of the right lower extremity demonstrates no evidence for deep venous thrombosis. Few nonspecific right groin lymph nodes are identified along with suspected Ruiz's cyst in the popliteal fossa measuring 4.1 x 0.7 x 1.6 cm. Reflux evaluation demonstrates no significant reflux through the superficial system and only very minimal focal reflux in the distal femoral vein. Impression: 1. No evidence for deep venous thrombosis. 2. No significant reflux. 3. Small Ruiz's cyst in the popliteal fossa. 4. Few nonspecific lymph nodes in the right groin. Electronically Signed by Francisco James MD 10/29/2019 02:10 P
== END ==
LOC: M RAD 12:27
PROVIDERS: ATTEND Radiology Diagnostic Radiology
DX: I83.11 Varicose veins of right lower extremity with inflammation (principal)

== ENCOUNTER → 2019-11-12 | Outpatient (CLI) | payer MEDICARE, MEDICAID ==
--- NOTE | 2019-11-12 15:51 | REPMRS ---
Patient History The patient states she has not had a clinical breast exam in over a year. Patient is postmenopausal. No known family history of cancer. No Hormone Replacement Therapy Digital Woman Screen Mammo: November 12, 2019 - Exam #: [id number] Bilateral CC and MLO view(s) were taken. Technologist: Vivienne Kumar, Technologist Prior study comparison: December 09, 2015, digital bilateral screening mammo, performed at [facility]. June 2014, digital bilateral screening mammo, performed at [facility]. June 11, 2013, bilateral digital woman screen mammo, performed at [facility]. FINDINGS: There are scattered fibroglandular densities. There is a pacemaker power plant projecting over the left axilla on the MLO view. There has been no change in the appearance of the mammogram from the prior studies. There is a mild amount of scattered fibroglandular density which is fairly symmetric. There is no interval development of dominant mass, architectural distortion, or grouped microcalcification suggestive of malignancy. 3-D tomosynthesis shows no additional findings. Assessment: BI-RADS/ACR category 2 mammogram. Benign Findings. Recommendation Routine screening mammogram of both breasts in 1 year (for women over age 40). This patient's Lifetime Breast Cancer Risk is estimated at 3.4 %. This mammogram was interpreted with the aid of an FDA-approved computer-aided dectection system. Electronically Signed By: Gallo Garcia MD 11/12/19 [id number]
== END ==
LOC: M WHC 14:06
PROVIDERS: ATTEND Physician Assistant Medical
DX: Z12.31 Encounter for screening mammogram for malignant neoplasm of breast (principal); M81.0 Age-related osteoporosis without current pathological fracture; Z78.0 Asymptomatic menopausal state

== ENCOUNTER → 2020-02-11 | Outpatient (REF) | payer MEDICARE, MEDICAID ==
[2020-02-11 15:54] LABS: ALBUMIN 3.8 GM/DL (3.2-5.2); ALT/SGPT 20 U/L (12-78); BILIRUBIN,TOTAL 0.5 MG/DL (0.2-1.0); BLOOD UREA NITROGEN 17 MG/DL (7-18); CALCIUM LEVEL 9.6 MG/DL (8.8-10.2); CARBON DIOXIDE LEVEL 28 MEQ/L (21-32); CHLORIDE LEVEL 107 MEQ/L (98-107); CPK CREATINE PHOSPHOKINASE 50 U/L (26-192); CREATININE FOR GFR 0.78 MG/DL (0.55-1.30); GLOMERULAR FILTRATION RATE > 60.0 (>39); GLUCOSE, FASTING 127 MG/DL (70-100); HEMOGLOBIN A1c 6.6 %; POTASSIUM SERUM 4.4 MEQ/L (3.5-5.1); SODIUM LEVEL 140 MEQ/L (136-145); TOTAL PROTEIN 7.4 GM/DL (6.4-8.2)
[2020-02-11 16:04] LABS: PTH INTACT 68.7 PG/ML (18.5-88.0); TOTAL 25(OH) VITAMIN D 58.3 NG/ML (30.0-100.0)
== END ==
LOC: M SFHCPLAZ 13:58
PROVIDERS: ATTEND Physician Assistant Medical
DX: E78.2 Mixed hyperlipidemia (principal); E55.9 Vitamin D deficiency, unspecified; E11.621 Type 2 diabetes mellitus with foot ulcer
CPT/HCPCS: 36415; 80053; 82306; 82550; 83036; 83970; G0463

== ENCOUNTER → 2020-04-20 | Outpatient (POV) | payer MEDICARE, MEDICAID ==
[~2020-04-20] MED LIST changes: -ASPI81TA85 PO; +ASPI81TA86 PO
--- NOTE | 2020-05-20 14:23 | IRPN ---
[facility] IR Progress Note IR Progress Note DATE: Apr 20, 2020 Patient agreed to this telephone follow-up. Duration of call was 15 minutes. FOLLOW-UP: 10 month follow-up status post right lower extremity revascularization for nonhealing right lower extremity wound. No further right lower extremity swelling, pain or ulcer. No intermittent claudication or rest pain. Patient states she is doing well. She continues on aspirin and Plavix. IMPRESSION: Doing well status post right lower extremity revascularization for nonhealing ulcers. No new ulcers. Continue aspirin and Plavix. Continue good diabetes control, exercise, good diet, aspirin and Plavix. We will continue annual follow-up for this patient. Thank you for this referral CC Dr. Allen Allergies Coded Allergies: MS - Ciprofloxacin (Verified Allergy, Intermediate, pt forgot, 06/12/17) MS - Metformin and Related (Verified Allergy, Intermediate, anxiety, 06/12/17) LORRIE ROMEO MD May 20, 2020 14:23
== END ==
LOC: M IRPOV 15:00
PROVIDERS: ATTEND Radiology Diagnostic Radiology
DX: Z48.812 Encounter for surgical aftercare following surgery on the circulatory system (principal); Z79.01 Long term (current) use of anticoagulants; Z79.82 Long term (current) use of aspirin; E11.9 Type 2 diabetes mellitus without complications; Z88.1 Allergy status to other antibiotic agents; Z88.8 Allergy status to other drugs, medicaments and biological substances

== ENCOUNTER → 2020-11-29 | Outpatient (REF) | payer MEDICARE, MEDICAID ==
[2020-11-29 10:26] LABS: BASO # 0.1 10^3/uL (0.0-0.2); BASO % 1.3 % (0.0-1.0); EOS # 0.4 10^3/uL (0.0-0.5); EOS % 5.3 % (0.0-3.0); HEMATOCRIT 43.5 % (36.0-47.0); HEMOGLOBIN 14.6 g/dl (12.0-15.5); LYMPH # 2.7 10^3/uL (1.5-5.0); LYMPH % 35.8 % (24.0-44.0); MEAN CORPUSCULAR HEMOGLOBIN 30.7 pg (27.0-33.0); MEAN CORPUSCULAR HGB CONC 33.6 g/dl (32.0-36.5); MEAN CORPUSCULAR VOLUME 91.4 fl (80.0-96.0); MONO # 0.6 10^3/uL (0.0-0.8); MONO % 7.7 % (2.0-8.0); NEUTROPHILS # 3.8 10^3/uL (1.5-8.5); NEUTROPHILS % 49.5 % (36.0-66.0); PLATELET COUNT, AUTOMATED 336 10^3/uL (150-450); RED BLOOD COUNT 4.76 10^6/uL (4.00-5.40); WHITE BLOOD COUNT 7.6 10^3/uL (4.0-10.0)
[2020-11-29 10:50] LABS: ALBUMIN 3.6 GM/DL (3.2-5.2); ALT/SGPT 13 U/L (12-78); BILIRUBIN,TOTAL 0.5 MG/DL (0.2-1.0); BLOOD UREA NITROGEN 10 MG/DL (7-18); CALCIUM LEVEL 9.3 MG/DL (8.8-10.2); CARBON DIOXIDE LEVEL 29 MEQ/L (21-32); CHLORIDE LEVEL 106 MEQ/L (98-107); CHOLESTEROL LEVEL 223 MG/DL (<200); CHOLESTEROL RISK RATIO 4.129 (<5); CREATININE FOR GFR 0.66 MG/DL (0.55-1.30); GLOMERULAR FILTRATION RATE > 60.0 (>39); GLUCOSE, FASTING 135 MG/DL (70-100); HDL CHOLESTEROL 54 MG/DL (>40); LDL CHOLESTEROL 143 MG/DL (<100); NON-HDL-C 169 MG/DL; POTASSIUM SERUM 4.9 MEQ/L (3.5-5.1); SODIUM LEVEL 139 MEQ/L (136-145); TOTAL PROTEIN 6.9 GM/DL (6.4-8.2); TRIGLYCERIDES LEVEL 130 MG/DL (<150)
[2020-11-29 11:02] LABS: PTH INTACT 88.9 PG/ML (18.5-88.0)
[2020-11-29 11:12] LABS: HEMOGLOBIN A1c 6.5 %
== END ==
LOC: M PLALAB 08:56
PROVIDERS: ATTEND Physician Assistant Medical
DX: I10 Essential (primary) hypertension (principal); E78.2 Mixed hyperlipidemia; E11.621 Type 2 diabetes mellitus with foot ulcer; E55.9 Vitamin D deficiency, unspecified

== ENCOUNTER → 2020-12-29 | Outpatient (CLI) | payer MEDICARE, MEDICAID ==
--- NOTE | 2020-12-29 14:17 | REPMRS ---
Patient History The patient states she has not had a clinical breast exam in over a year. No known family history of cancer. No Hormone Replacement Therapy Digital Woman Screen Mammo: December 29, 2020 - Exam #: [id number] Bilateral CC and MLO view(s) were taken. Technologist: Leticia Valles, Technologist Prior study comparison: November 12, 2019, bilateral digital woman screen mammo performed at [facility]. December 09, 2015, digital bilateral screening mammo, performed at [facility]. June 2014, digital bilateral screening mammo, performed at [facility]. FINDINGS: The breast tissue is heterogeneously dense. This may lower the sensitivity of mammography. [facility] category [facility]: C. There is a pacemaker power plant projecting over the left axilla on the MLO view. There is a moderate amount of heterogeneously dense fibroglandular tissue which is fairly symmetric. There is no interval development of dominant mass, architectural distortion, or grouped microcalcification typical of malignancy. There has been no change in the appearance of the mammogram from the prior studies. 3-D tomosynthesis shows no additional findings. Assessment: BI-RADS/ACR category 2 mammogram. Benign Findings. Recommendation Routine screening mammogram of both breasts in 1 year (for women over age 40). This patient's [facility] Lifetime Breast Cancer RIsk is estimated at 3.2 %. This mammogram was interpreted with the aid of an FDA-approved computer-aided dectection system. Electronically Signed By: Gallo Garcia MD 12/29/20 [id number]
== END ==
LOC: M WHC 12:51
PROVIDERS: ATTEND Physician Assistant Medical
DX: Z12.31 Encounter for screening mammogram for malignant neoplasm of breast (principal)

== ENCOUNTER → 2021-04-14 | Outpatient (CLI) | payer MEDICARE, MEDICAID ==
[2021-04-14 17:36] LABS: ALBUMIN 3.7 GM/DL (3.2-5.2); ALT/SGPT 15 U/L (12-78); BILIRUBIN,TOTAL 0.6 MG/DL (0.2-1.0); BLOOD UREA NITROGEN 14 MG/DL (7-18); CALCIUM LEVEL 9.4 MG/DL (8.8-10.2); CARBON DIOXIDE LEVEL 30 MEQ/L (21-32); CHLORIDE LEVEL 106 MEQ/L (98-107); CHOLESTEROL LEVEL 232 MG/DL (<200); CHOLESTEROL RISK RATIO 4.296 (<5); CREATININE FOR GFR 0.64 MG/DL (0.55-1.30); GLOMERULAR FILTRATION RATE > 60.0 (>39); GLUCOSE, FASTING 107 MG/DL (70-100); HDL CHOLESTEROL 54 MG/DL (>40); LDL CHOLESTEROL 152 MG/DL (<100); NON-HDL-C 178 MG/DL; SODIUM LEVEL 138 MEQ/L (136-145); TOTAL PROTEIN 7.2 GM/DL (6.4-8.2); TRIGLYCERIDES LEVEL 132 MG/DL (<150)
[2021-04-14 17:38] LABS: BASO # 0.1 10^3/uL (0.0-0.2); BASO % 1.2 % (0.0-1.0); EOS # 0.3 10^3/uL (0.0-0.5); EOS % 3.4 % (0.0-3.0); HEMATOCRIT 42.9 % (36.0-47.0); HEMOGLOBIN 14.3 g/dl (12.0-15.5); LYMPH # 2.4 10^3/uL (1.5-5.0); LYMPH % 29.2 % (24.0-44.0); MEAN CORPUSCULAR HEMOGLOBIN 30.2 pg (27.0-33.0); MEAN CORPUSCULAR HGB CONC 33.3 g/dl (32.0-36.5); MEAN CORPUSCULAR VOLUME 90.7 fl (80.0-96.0); MONO # 0.7 10^3/uL (0.0-0.8); MONO % 8.8 % (2.0-8.0); NEUTROPHILS # 4.6 10^3/uL (1.5-8.5); NEUTROPHILS % 57.2 % (36.0-66.0); PLATELET COUNT, AUTOMATED 341 10^3/uL (150-450); RED BLOOD COUNT 4.73 10^6/uL (4.00-5.40); WHITE BLOOD COUNT 8.1 10^3/uL (4.0-10.0)
[2021-04-14 17:41] LABS: TOTAL 25(OH) VITAMIN D 40.8 NG/ML (30.0-100.0)
[2021-04-14 17:42] LABS: PTH INTACT 68.7 PG/ML (18.5-88.0)
[2021-04-14 18:37] LABS: HEMOGLOBIN A1c 6.6 %
== END ==
LOC: M PLALAB 13:58
PROVIDERS: ATTEND Physician Assistant Medical
DX: E11.621 Type 2 diabetes mellitus with foot ulcer (principal); E78.2 Mixed hyperlipidemia; I10 Essential (primary) hypertension; E55.9 Vitamin D deficiency, unspecified; Z79.899 Other long term (current) drug therapy
CPT/HCPCS: 36415; 80053; 80061; 82306; 83036; 83970; 85025; G0463

== ENCOUNTER → 2021-08-25 | Outpatient (CLI) | payer MEDICARE, MEDICAID ==
[2021-08-25 17:10] LABS: BASO # 0.1 10^3/uL (0.0-0.2); EOS # 0.4 10^3/uL (0.0-0.5); HEMATOCRIT 42.9 % (36.0-47.0); HEMOGLOBIN 14.6 g/dl (12.0-15.5); LYMPH # 2.7 10^3/uL (1.5-5.0); LYMPH % 27.4 % (24.0-44.0); MEAN CORPUSCULAR HEMOGLOBIN 30.7 pg (27.0-33.0); MEAN CORPUSCULAR VOLUME 90.3 fl (80.0-96.0); MONO # 0.8 10^3/uL (0.0-0.8); MONO % 7.9 % (2.0-8.0); NEUTROPHILS # 5.9 10^3/uL (1.5-8.5); NEUTROPHILS % 59.4 % (36.0-66.0); PLATELET COUNT, AUTOMATED 386 10^3/uL (150-450); RED BLOOD COUNT 4.75 10^6/uL (4.00-5.40)
[2021-08-25 17:15] LABS: CALCIUM LEVEL 10.4 MG/DL (8.8-10.2); HEMOGLOBIN A1c 6.5 %
[2021-08-25 17:32] LABS: TOTAL 25(OH) VITAMIN D 43.2 NG/ML (30.0-100.0)
[2021-08-25 17:33] LABS: PTH INTACT 85.4 PG/ML (18.5-88.0)
== END ==
LOC: M PLALAB 14:25
PROVIDERS: ATTEND Physician Assistant Medical
DX: E11.621 Type 2 diabetes mellitus with foot ulcer (principal); I10 Essential (primary) hypertension; E55.9 Vitamin D deficiency, unspecified
CPT/HCPCS: 36415; 82306; 82310; 83036; 83970; 85025; G0463

== ENCOUNTER → 2022-01-02 | Outpatient (CLI) | payer MEDICARE, MEDICAID ==
[2022-01-02 15:42] LABS: HEMOGLOBIN A1c 6.2 %
[2022-01-02 15:46] LABS: ALBUMIN 3.6 GM/DL (3.2-5.2); ALT/SGPT 22 U/L (12-78); BILIRUBIN,TOTAL 0.5 MG/DL (0.2-1.0); BLOOD UREA NITROGEN 21 MG/DL (7-18); CALCIUM LEVEL 9.5 MG/DL (8.8-10.2); CARBON DIOXIDE LEVEL 31 MEQ/L (21-32); CHLORIDE LEVEL 105 MEQ/L (98-107); CHOLESTEROL LEVEL 210 MG/DL (<200); CHOLESTEROL RISK RATIO 3.962 (<5); CREATININE FOR GFR 0.83 MG/DL (0.55-1.30); GLOMERULAR FILTRATION RATE > 60.0 (>39); GLUCOSE, FASTING 111 MG/DL (70-100); HDL CHOLESTEROL 53 MG/DL (>40); LDL CHOLESTEROL 126 MG/DL (<100); NON-HDL-C 157 MG/DL; POTASSIUM SERUM 3.9 MEQ/L (3.5-5.1); SODIUM LEVEL 139 MEQ/L (136-145); TOTAL PROTEIN 6.7 GM/DL (6.4-8.2); TRIGLYCERIDES LEVEL 156 MG/DL (<150)
[2022-01-02 15:53] LABS: PTH INTACT 89.7 PG/ML (18.5-88.0); TOTAL 25(OH) VITAMIN D 33.7 NG/ML (30.0-100.0)
== END ==
LOC: M PLALAB 13:16
PROVIDERS: ATTEND Physician Assistant Medical
DX: E11.621 Type 2 diabetes mellitus with foot ulcer (principal); E55.9 Vitamin D deficiency, unspecified; E78.2 Mixed hyperlipidemia; Z79.899 Other long term (current) drug therapy

== ENCOUNTER → 2022-01-02 | Outpatient (CLI) | payer MEDICARE, MEDICAID | LOC: M WHC 12:39 | PROVIDERS: ATTEND Physician Assistant Medical | DX: Z12.31 Encounter for screening mammogram for malignant neoplasm of breast (principal); E11.621 Type 2 diabetes mellitus with foot ulcer; E55.9 Vitamin D deficiency, unspecified; E78.2 Mixed hyperlipidemia; Z79.899 Other long term (current) drug therapy ==

== ENCOUNTER 2022-03-04 21:56 | Emergency (ER) | payer MEDICARE, MEDICAID ==
[~2022-03-04] VITALS: Ht 162.6 cm; Wt 62.2 kg
[2022-03-04] MEDS ORDERED: OXYMETAZOLINE 0.05% NASAL SPRAY (AFRIN) ONE (22:05)
[2022-03-04] MEDS ORDERED: CLOP75TA2 PO (22:09)
[2022-03-04 22:30] LABS: BASO # 0.1 10^3/uL (0.0-0.2); BASO % 0.7 % (0.0-1.0); EOS # 0.4 10^3/uL (0.0-0.5); EOS % 2.8 % (0.0-3.0); HEMATOCRIT 39.4 % (36.0-47.0); HEMOGLOBIN 13.4 g/dl (12.0-15.5); LYMPH # 2.3 10^3/uL (1.5-5.0); LYMPH % 17.1 % (24.0-44.0); MEAN CORPUSCULAR HEMOGLOBIN 30.8 pg (27.0-33.0); MEAN CORPUSCULAR VOLUME 90.6 fl (80.0-96.0); MONO # 0.8 10^3/uL (0.0-0.8); MONO % 6.3 % (2.0-8.0); NEUTROPHILS # 9.8 10^3/uL (1.5-8.5); NEUTROPHILS % 72.7 % (36.0-66.0); PLATELET COUNT, AUTOMATED 329 10^3/uL (150-450); RED BLOOD COUNT 4.35 10^6/uL (4.00-5.40); WHITE BLOOD COUNT 13.4 10^3/uL (4.0-10.0)
[2022-03-04 22:41] LABS: INR 0.94
[2022-03-04 22:42] LABS: PARTIAL THROMBOPLASTIN TIME 31.8 SECONDS (25.9-37.0)
[2022-03-04 23:37] VITALS: BP 107/74
== END 2022-03-05 00:08 | disposition home or self-care (01) ==
LOC: M ED 21:56
DX: R04.0 Epistaxis (principal); I10 Essential (primary) hypertension; E11.9 Type 2 diabetes mellitus without complications; Z86.79 Personal history of other diseases of the circulatory system; Z87.891 Personal history of nicotine dependence; Z88.8 Allergy status to other drugs, medicaments and biological substances; Z88.1 Allergy status to other antibiotic agents; Z79.899 Other long term (current) drug therapy

== ENCOUNTER 2022-03-07 00:32 | Emergency (ER) | payer MEDICARE, MEDICAID ==
[~2022-03-07] VITALS: Ht 162.6 cm; Wt 62.3 kg
[~2022-03-07 00:32] MED LIST changes: +CLOP75TA2 PO
[2022-03-07] MEDS ORDERED: OXYMETAZOLINE 0.05% NASAL SPRAY (AFRIN) ONE (00:50)
[2022-03-07] MEDS ORDERED: NS 1,000 ML IV ONE ×2 (01:15→02:50)
[2022-03-07 01:28] LABS: BASO # 0.1 10^3/uL (0.0-0.2); BASO % 0.6 % (0.0-1.0); EOS # 0.4 10^3/uL (0.0-0.5); EOS % 2.6 % (0.0-3.0); HEMATOCRIT 30.2 % (36.0-47.0); HEMOGLOBIN 10.2 g/dl (12.0-15.5); LYMPH # 3.6 10^3/uL (1.5-5.0); LYMPH % 20.9 % (24.0-44.0); MEAN CORPUSCULAR HEMOGLOBIN 31.1 pg (27.0-33.0); MEAN CORPUSCULAR HGB CONC 33.8 g/dl (32.0-36.5); MEAN CORPUSCULAR VOLUME 92.1 fl (80.0-96.0); NEUTROPHILS # 11.9 10^3/uL (1.5-8.5); NEUTROPHILS % 69.4 % (36.0-66.0); PLATELET COUNT, AUTOMATED 305 10^3/uL (150-450); RED BLOOD COUNT 3.28 10^6/uL (4.00-5.40); WHITE BLOOD COUNT 17.1 10^3/uL (4.0-10.0)
[2022-03-07 01:40] LABS: INR 1.02; PROTHROMBIN TIME 13.8 SECONDS (12.7-14.5)
[2022-03-07 01:41] LABS: PARTIAL THROMBOPLASTIN TIME 25.1 SECONDS (25.9-37.0)
[2022-03-07 01:53] LABS: BLOOD UREA NITROGEN 22 MG/DL (7-18); CALCIUM LEVEL 8.9 MG/DL (8.8-10.2); CARBON DIOXIDE LEVEL 22 MEQ/L (21-32); CHLORIDE LEVEL 108 MEQ/L (98-107); CREATININE FOR GFR 0.86 MG/DL (0.55-1.30); GLOMERULAR FILTRATION RATE > 60.0 (>39); GLUCOSE, FASTING 243 MG/DL (70-100); POTASSIUM SERUM 4.5 MEQ/L (3.5-5.1); SODIUM LEVEL 140 MEQ/L (136-145)
[2022-03-07 02:02] LABS: RSV AMPLIFICATION NEGATIVE (NEGATIVE)
[2022-03-07] MEDS ORDERED: ONDANSETRON 4MG/2ML VIAL IV ONE (02:50)
[2022-03-07 04:00] VITALS: BP 135/62
[2022-03-07] MEDS ORDERED: CLEO300C2 PO (04:41)
== END 2022-03-07 05:52 | disposition home or self-care (01) ==
LOC: M ED 00:32 → EDBD 00:32 → M ED 05:52
DX: R04.0 Epistaxis (principal); E11.9 Type 2 diabetes mellitus without complications; Z79.84 Long term (current) use of oral hypoglycemic drugs; Z86.79 Personal history of other diseases of the circulatory system; Z88.8 Allergy status to other drugs, medicaments and biological substances; Z88.1 Allergy status to other antibiotic agents; Z79.899 Other long term (current) drug therapy
CPT/HCPCS: 80048; 85025; 85610; 85730; 86850; 86900; 86901; 87631; 96361; 96374; 99284; J2405

== ENCOUNTER → 2022-05-10 | Outpatient (CLI) | payer MEDICARE, MEDICAID ==
[~2022-05-10] MED LIST changes: +CLEO300C2 PO
[2022-05-10 17:39] LABS: BASO # 0.1 10^3/uL (0.0-0.2); BASO % 0.8 % (0.0-1.0); EOS # 0.3 10^3/uL (0.0-0.5); EOS % 2.1 % (0.0-3.0); HEMATOCRIT 39.7 % (36.0-47.0); HEMOGLOBIN 13.2 g/dl (12.0-15.5); LYMPH # 2.4 10^3/uL (1.5-5.0); LYMPH % 18.2 % (24.0-44.0); MEAN CORPUSCULAR HEMOGLOBIN 30.3 pg (27.0-33.0); MEAN CORPUSCULAR HGB CONC 33.2 g/dl (32.0-36.5); MEAN CORPUSCULAR VOLUME 91.1 fl (80.0-96.0); MONO # 1.1 10^3/uL (0.0-0.8); NEUTROPHILS # 9.2 10^3/uL (1.5-8.5); NEUTROPHILS % 70.5 % (36.0-66.0); PLATELET COUNT, AUTOMATED 392 10^3/uL (150-450); RED BLOOD COUNT 4.36 10^6/uL (4.00-5.40); WHITE BLOOD COUNT 13.1 10^3/uL (4.0-10.0)
== END ==
LOC: M PLALAB 14:29
PROVIDERS: ATTEND Physician Assistant Medical
DX: I10 Essential (primary) hypertension (principal)

== ENCOUNTER → 2022-05-12 | Outpatient (CLI) | payer MEDICARE, MEDICAID | LOC: M WHC 12:51 | PROVIDERS: ATTEND Physician Assistant Medical | DX: Z13.820 Encounter for screening for osteoporosis (principal); M85.851 Other specified disorders of bone density and structure, right thigh; M85.852 Other specified disorders of bone density and structure, left thigh ==

== ENCOUNTER 2022-05-25 10:08 | Emergency (ER) | payer MEDICARE, MEDICAID ==
[~2022-05-25] VITALS: Ht 160 cm; Wt 61.0 kg
[2022-05-25] MEDS ORDERED: EZET10TA21 (10:27)
[2022-05-25 13:05] LABS: BASO # 0.1 10^3/uL (0.0-0.2); BASO % 0.9 % (0.0-1.0); EOS # 0.2 10^3/uL (0.0-0.5); HEMATOCRIT 39.8 % (36.0-47.0); HEMOGLOBIN 13.4 g/dl (12.0-15.5); LYMPH # 1.9 10^3/uL (1.5-5.0); LYMPH % 18.4 % (24.0-44.0); MEAN CORPUSCULAR HEMOGLOBIN 30.5 pg (27.0-33.0); MEAN CORPUSCULAR HGB CONC 33.7 g/dl (32.0-36.5); MEAN CORPUSCULAR VOLUME 90.5 fl (80.0-96.0); MONO # 0.7 10^3/uL (0.0-0.8); MONO % 6.9 % (2.0-8.0); NEUTROPHILS # 7.5 10^3/uL (1.5-8.5); NEUTROPHILS % 71.4 % (36.0-66.0); PLATELET COUNT, AUTOMATED 426 10^3/uL (150-450); WHITE BLOOD COUNT 10.6 10^3/uL (4.0-10.0)
[2022-05-25 13:41] LABS: BLOOD UREA NITROGEN 19 MG/DL (7-18); CALCIUM LEVEL 9.7 MG/DL (8.8-10.2); CARBON DIOXIDE LEVEL 30 MEQ/L (21-32); CHLORIDE LEVEL 104 MEQ/L (98-107); CREATININE FOR GFR 0.93 MG/DL (0.55-1.30); GLOMERULAR FILTRATION RATE > 60.0 (>39); GLUCOSE, FASTING 147 MG/DL (70-100); POTASSIUM SERUM 4.2 MEQ/L (3.5-5.1); SODIUM LEVEL 137 MEQ/L (136-145)
[2022-05-25] MEDS ORDERED: DOXYCYCLINE HYCLATE 100MG TABLET PO ONE (13:55)
[2022-05-25] MEDS ORDERED: DOXY-342 PO (14:07)
[2022-05-25 14:16] VITALS: BP 149/66
== END 2022-05-25 14:50 | disposition home or self-care (01) ==
LOC: M ED 10:08
DX: L97.519 Non-pressure chronic ulcer of other part of right foot with unspecified severity (principal); L03.115 Cellulitis of right lower limb; E11.9 Type 2 diabetes mellitus without complications; I10 Essential (primary) hypertension; I51.9 Heart disease, unspecified; E78.5 Hyperlipidemia, unspecified; Z79.02 Long term (current) use of antithrombotics/antiplatelets; Z95.0 Presence of cardiac pacemaker; Z79.84 Long term (current) use of oral hypoglycemic drugs; Z79.899 Other long term (current) drug therapy; Z88.1 Allergy status to other antibiotic agents; Z88.8 Allergy status to other drugs, medicaments and biological substances

== ENCOUNTER → 2022-06-06 | Outpatient (CLI) | payer MEDICARE, MEDICAID ==
[~2022-06-06] MED LIST changes: +DOXY-342 PO; +EZET10TA21
[2022-06-06 15:53] LABS: BASO # 0.1 10^3/uL (0.0-0.2); BASO % 1.1 % (0.0-1.0); EOS # 0.3 10^3/uL (0.0-0.5); EOS % 2.8 % (0.0-3.0); HEMATOCRIT 43.1 % (36.0-47.0); HEMOGLOBIN 14.2 g/dl (12.0-15.5); LYMPH # 2.4 10^3/uL (1.5-5.0); LYMPH % 25.2 % (24.0-44.0); MEAN CORPUSCULAR HEMOGLOBIN 29.6 pg (27.0-33.0); MEAN CORPUSCULAR HGB CONC 32.9 g/dl (32.0-36.5); MONO # 0.8 10^3/uL (0.0-0.8); NEUTROPHILS # 5.8 10^3/uL (1.5-8.5); NEUTROPHILS % 62.5 % (36.0-66.0); PLATELET COUNT, AUTOMATED 421 10^3/uL (150-450); RED BLOOD COUNT 4.79 10^6/uL (4.00-5.40); WHITE BLOOD COUNT 9.3 10^3/uL (4.0-10.0)
[2022-06-06 16:15] LABS: ERYTHROCYTE SEDIMENTATION RATE 22 mm/hr (0-30)
[2022-06-06 16:33] LABS: BLOOD UREA NITROGEN 15 MG/DL (7-18); CREATININE FOR GFR 0.95 MG/DL (0.55-1.30); GLUCOSE, FASTING 121 MG/DL (70-100)
[2022-06-06 16:34] LABS: ALBUMIN 3.4 GM/DL (3.2-5.2); ALT/SGPT 14 U/L (12-78); BILIRUBIN,TOTAL 0.3 MG/DL (0.2-1.0); CALCIUM LEVEL 10.1 MG/DL (8.8-10.2); CARBON DIOXIDE LEVEL 29 MEQ/L (21-32); CHLORIDE LEVEL 104 MEQ/L (98-107); CHOLESTEROL LEVEL 217 MG/DL (<200); CHOLESTEROL RISK RATIO 4.018 (<5); GLOMERULAR FILTRATION RATE > 60.0 (>39); HDL CHOLESTEROL 54 MG/DL (>40); LDL CHOLESTEROL 132 MG/DL (<100); NON-HDL-C 163 MG/DL; POTASSIUM SERUM 4.4 MEQ/L (3.5-5.1); SODIUM LEVEL 137 MEQ/L (136-145); TRIGLYCERIDES LEVEL 157 MG/DL (<150)
[2022-06-06 17:10] LABS: PTH INTACT 49.5 PG/ML (18.5-88.0); TOTAL 25(OH) VITAMIN D 37.8 NG/ML (30.0-100.0)
[2022-06-06 19:36] LABS: HEMOGLOBIN A1c 6.8 %
== END ==
LOC: M PLALAB 13:59
PROVIDERS: ATTEND Physician Assistant Medical
DX: E11.9 Type 2 diabetes mellitus without complications (principal); I10 Essential (primary) hypertension; E78.2 Mixed hyperlipidemia; E55.9 Vitamin D deficiency, unspecified; M86.279 Subacute osteomyelitis, unspecified ankle and foot; Z79.899 Other long term (current) drug therapy

== ENCOUNTER → 2022-06-13 | Outpatient (CLI) | payer MEDICARE, MEDICAID ==
[~2022-06-13] MED LIST changes: +ISOVUE-370 76% 100ML VIAL As Ordered ONE
== END ==
LOC: M RAD 10:12
PROVIDERS: ATTEND Physician Assistant Medical
DX: M86.279 Subacute osteomyelitis, unspecified ankle and foot (principal)
CPT/HCPCS: 73701; Q9967

== ENCOUNTER → 2022-10-10 | Outpatient (CLI) | payer MEDICARE, MEDICAID ==
[~2022-10-10] MED LIST changes: -DOXY-342 PO; +DOXY100C81 PO; -ISOVUE-370 76% 100ML VIAL As Ordered ONE
[2022-10-10 15:34] LABS: BASO # 0.1 10^3/uL (0.0-0.2); EOS # 0.3 10^3/uL (0.0-0.5); EOS % 3.4 % (0.0-3.0); HEMATOCRIT 42.8 % (36.0-47.0); HEMOGLOBIN 14.2 g/dl (12.0-15.5); LYMPH # 2.4 10^3/uL (1.5-5.0); LYMPH % 25.3 % (24.0-44.0); MEAN CORPUSCULAR HEMOGLOBIN 30.5 pg (27.0-33.0); MEAN CORPUSCULAR HGB CONC 33.2 g/dl (32.0-36.5); MONO # 0.7 10^3/uL (0.0-0.8); MONO % 7.4 % (2.0-8.0); NEUTROPHILS # 5.9 10^3/uL (1.5-8.5); NEUTROPHILS % 62.7 % (36.0-66.0); PLATELET COUNT, AUTOMATED 346 10^3/uL (150-450); RED BLOOD COUNT 4.65 10^6/uL (4.00-5.40); WHITE BLOOD COUNT 9.4 10^3/uL (4.0-10.0)
[2022-10-10 16:08] LABS: ALBUMIN 3.6 G/DL (3.2-5.2); ALKALINE PHOSPHATASE 75 U/L (46-116); ALT/SGPT 12 U/L (7.0-40); AST/SGOT 18 U/L (<34); BILIRUBIN,TOTAL 0.5 MG/DL (0.3-1.2); BLOOD UREA NITROGEN 18 MG/DL (9-23); CALCIUM LEVEL 10.2 MG/DL (8.3-10.6); CARBON DIOXIDE LEVEL 29 MMOL/L (20-31); CHLORIDE LEVEL 106 MMOL/L (98-107); CHOLESTEROL LEVEL 207 MG/DL (<200); CREATININE FOR GFR 0.86 MG/DL (0.55-1.30); GLOMERULAR FILTRATION RATE > 60.0 (>39); GLUCOSE, FASTING 92 MG/DL (74-106); HDL CHOLESTEROL 48.1 MG/DL (>40); LDL CHOLESTEROL 119.1 MG/DL (<100); NON-HDL-C 159 MG/DL; POTASSIUM SERUM 4.5 MMOL/L (3.5-5.1); PTH INTACT 71.9 PG/ML (18.5-88.0); SODIUM LEVEL 140 MMOL/L (136-145); TOTAL 25(OH) VITAMIN D 39.4 NG/ML (20.0-100.0); TOTAL PROTEIN 6.6 G/DL (5.7-8.2); TRIGLYCERIDES LEVEL 199 MG/DL (<150)
[2022-10-10 16:44] LABS: HEMOGLOBIN A1c 6.1 % (4.0-6.0)
== END ==
LOC: M PLALAB 13:46
PROVIDERS: ATTEND Physician Assistant Medical
DX: E11.621 Type 2 diabetes mellitus with foot ulcer (principal); E55.9 Vitamin D deficiency, unspecified; E78.5 Hyperlipidemia, unspecified; I10 Essential (primary) hypertension; E78.2 Mixed hyperlipidemia; Z79.899 Other long term (current) drug therapy
CPT/HCPCS: 36415; 80053; 80061; 82306; 83036; 83970; 85025; G0463

== ENCOUNTER → 2023-01-09 | Outpatient (CLI) | payer MEDICARE, MEDICAID | LOC: M WHC 13:14 | PROVIDERS: ATTEND Physician Assistant Medical | DX: Z12.31 Encounter for screening mammogram for malignant neoplasm of breast (principal) ==

== ENCOUNTER 2023-01-24 11:32 | Emergency (ER) | payer MEDICARE, MEDICAID ==
[~2023-01-24] VITALS: Ht 160 cm; Wt 60.5 kg
[2023-01-24 12:33] LABS: HEMATOCRIT 39.2 % (36.0-47.0); HEMOGLOBIN 13.2 g/dl (12.0-15.5); MEAN CORPUSCULAR HEMOGLOBIN 30.8 pg (27.0-33.0); MEAN CORPUSCULAR HGB CONC 33.7 g/dl (32.0-36.5); MEAN CORPUSCULAR VOLUME 91.4 fl (80.0-96.0); PLATELET COUNT, AUTOMATED 539 10^3/uL (150-450); RED BLOOD COUNT 4.29 10^6/uL (4.00-5.40)
[2023-01-24 12:55] LABS: CALCIUM LEVEL 9.7 MG/DL (8.3-10.6); CREATININE FOR GFR 0.99 MG/DL (0.55-1.30); GLOMERULAR FILTRATION RATE 58.1 (>39); POTASSIUM SERUM 4.6 MMOL/L (3.5-5.1)
[2023-01-24 15:34] LABS: C REACTIVE PROTEIN QUANTITATIV 0.8 MG/DL (<1.0)
[2023-01-24 15:37] LABS: ERYTHROCYTE SEDIMENTATION RATE 95 mm/hr (0-30)
[2023-01-24] MEDS ORDERED: DOXYCYCLINE HYCLATE 100MG TABLET PO ONE (16:45)
[2023-01-24] MEDS ORDERED: VANCOMYCIN HCL 1,250 MG in NS 250 ML IV ONE (16:45)
[2023-01-24] MEDS ORDERED: VANCOMYCIN HCL 750 MG, VIAL MATE ADAPTER 1 EACH in D5W 250 ML IV ONE (18:00)
[2023-01-24] MEDS ORDERED: VANCOMYCIN HCL 500 MG in D5W MINI-BAG PLUS 100 ML IV ONE (19:00)
[2023-01-24] MEDS ORDERED: DOXY-443 PO (20:38)
[2023-01-24 21:04] VITALS: BP 210/88
[2023-01-25] MEDS ORDERED: ULTR5TAB PO (13:25)
[2023-01-25] MEDS ORDERED: TUMS750C22 PO (13:25)
[2023-01-25] MEDS ORDERED: VITA100054 PO (13:25)
[2023-01-25] MEDS ORDERED: LEVOTAB10 PO (13:25)
== END 2023-01-24 21:15 | disposition home or self-care (01) ==
LOC: M ED 11:32
DX: M86.171 Other acute osteomyelitis, right ankle and foot (principal); E11.9 Type 2 diabetes mellitus without complications; I10 Essential (primary) hypertension; E78.5 Hyperlipidemia, unspecified; Z79.84 Long term (current) use of oral hypoglycemic drugs; Z88.1 Allergy status to other antibiotic agents; Z88.8 Allergy status to other drugs, medicaments and biological substances; Z79.01 Long term (current) use of anticoagulants; Z95.0 Presence of cardiac pacemaker; Z79.82 Long term (current) use of aspirin; Z79.899 Other long term (current) drug therapy

== ENCOUNTER 2023-01-26 14:54 | Day surgery (SDC) | payer MEDICARE, MEDICAID ==
[~2023-01-26] VITALS: Ht 160 cm; Wt 60.3 kg
[~2023-01-26 14:54] MED LIST changes: +DOXY-443 PO; +LEVOTAB10 PO; +LIDOCAINE 1% SDV 30ML VIAL As Ordered ONE; +NEOSPORIN TOP OINT 15GM As Ordered ONE; +TUMS750C22 PO; +ULTR5TAB PO; +VITA100054 PO; +ceFAZolin SOD 2 GM in IV 1 EA IV ONE
[2023-01-26] MEDS ORDERED: LR 1,000 ML IV SCH (15:40)
[2023-01-26] MEDS ORDERED: TRANEXAMIC ACID 100 MG/ML 10ML VIAL As Ordered ONE (17:34)
[2023-01-26] MEDS ORDERED: LIDOCAINE 2% 100MG/5ML SDV (FOR ANES.) As Ordered ONE (17:47)
[2023-01-26] MEDS ORDERED: MIDAZOLAM INJ 2MG/2ML VIAL As Ordered ONE (17:47)
[2023-01-26] MEDS ORDERED: propofoL 200 MG/20 ML VIAL As Ordered ONE (17:47)
[2023-01-26] MEDS ORDERED: fentaNYL 100 MCG/2 ML INJECTION As Ordered ONE (17:47)
[2023-01-26 19:22] VITALS: BP 163/82
== END 2023-01-26 19:37 | disposition home or self-care (01) ==
LOC: M SDC 14:54 → EEVIPCON 14:54 → M SDC 19:37
PROVIDERS: ATTEND Internal Medicine Cardiovascular Disease
DX: T82.111A Breakdown (mechanical) of cardiac pulse generator (battery), initial encounter (principal); Z45.010 Encounter for checking and testing of cardiac pacemaker pulse generator [battery]; I48.21 Permanent atrial fibrillation; E11.9 Type 2 diabetes mellitus without complications; I10 Essential (primary) hypertension; E78.5 Hyperlipidemia, unspecified; Z79.899 Other long term (current) drug therapy; Z79.02 Long term (current) use of antithrombotics/antiplatelets; Z79.84 Long term (current) use of oral hypoglycemic drugs; Z88.8 Allergy status to other drugs, medicaments and biological substances; Z88.1 Allergy status to other antibiotic agents; Z87.891 Personal history of nicotine dependence
CPT/HCPCS: 33227; C1786; J0690; J2250; J3010

== ENCOUNTER → 2023-02-07 | Day surgery (SDC) | payer MEDICARE, MEDICAID ==
[~2023-02-07] VITALS: Ht 161.3 cm; Wt 60.5 kg
[~2023-02-07] MED LIST changes: +ACETAMINOPHEN 1000MG 100ML IV BAG As Ordered ONE; +ASPI81TA26 PO; +BUPIVACAINE HCL 0.5% 30ML VIAL As Ordered ONE; -CART240C3; +CART240C3 PO; -EZET10TA21; +EZET10TA21 PO; -GLIM1TAB4; +GLIM1TAB4 PO; +KETOROLAC 60MG 2ML VIAL As Ordered ONE; +LIDOCAINE 1% MDV 20ML VIAL As Ordered ONE; -LIDOCAINE 1% SDV 30ML VIAL As Ordered ONE; +LIDOCAINE 2% 100MG/5ML SDV (FOR ANES.) As Ordered ONE; +MIDAZOLAM INJ 2MG/2ML VIAL As Ordered ONE; -NEOSPORIN TOP OINT 15GM As Ordered ONE; +VANCOMYCIN HCL 1,000 MG, VIAL MATE ADAPTER 1 EACH in D5W 250 ML IV ONE; -ceFAZolin SOD 2 GM in IV 1 EA IV ONE; +fentaNYL 100 MCG/2 ML INJECTION As Ordered ONE; +propofoL 200 MG/20 ML VIAL As Ordered ONE
[2023-02-07 12:30] VITALS: BP 141/64
== END | disposition home or self-care (01) ==
LOC: M SDC 09:47
PROVIDERS: ATTEND Podiatrist Foot & Ankle Surgery
DX: M85.671 Other cyst of bone, right ankle and foot (principal); M89.8X7 Other specified disorders of bone, ankle and foot; I48.91 Unspecified atrial fibrillation; Z95.810 Presence of automatic (implantable) cardiac defibrillator; I10 Essential (primary) hypertension; E11.9 Type 2 diabetes mellitus without complications; K44.9 Diaphragmatic hernia without obstruction or gangrene; F41.9 Anxiety disorder, unspecified; Z79.82 Long term (current) use of aspirin; Z79.02 Long term (current) use of antithrombotics/antiplatelets; Z79.899 Other long term (current) drug therapy; Z88.1 Allergy status to other antibiotic agents; Z88.8 Allergy status to other drugs, medicaments and biological substances
CPT/HCPCS: 28090; 28122; 87070; 87075; 87077; 87186; 87205; 88304; 88311; J0131; J1100; J1885; J2250; J3010

== ENCOUNTER → 2023-05-03 | Outpatient (REF) | payer MEDICARE, MEDICAID ==
[~2023-05-03] MED LIST changes: -ACETAMINOPHEN 1000MG 100ML IV BAG As Ordered ONE; -BUPIVACAINE HCL 0.5% 30ML VIAL As Ordered ONE; -DOXY100C81 PO; +DOXY100C82 PO; -KETOROLAC 60MG 2ML VIAL As Ordered ONE; -LIDOCAINE 1% MDV 20ML VIAL As Ordered ONE; -LIDOCAINE 2% 100MG/5ML SDV (FOR ANES.) As Ordered ONE; -MIDAZOLAM INJ 2MG/2ML VIAL As Ordered ONE; -VANCOMYCIN HCL 1,000 MG, VIAL MATE ADAPTER 1 EACH in D5W 250 ML IV ONE; -fentaNYL 100 MCG/2 ML INJECTION As Ordered ONE; -propofoL 200 MG/20 ML VIAL As Ordered ONE
[2023-05-03 18:54] LABS: HEMOGLOBIN A1c 5.8 % (4.0-6.0)
[2023-05-03 18:58] LABS: BASO # 0.1 10^3/uL (0.0-0.2); BASO % 1.1 % (0.0-1.0); EOS # 0.3 10^3/uL (0.0-0.5); EOS % 3.3 % (0.0-3.0); HEMATOCRIT 44.4 % (36.0-47.0); HEMOGLOBIN 14.7 g/dl (12.0-15.5); LYMPH # 2.2 10^3/uL (1.5-5.0); LYMPH % 23.2 % (24.0-44.0); MEAN CORPUSCULAR HEMOGLOBIN 30.1 pg (27.0-33.0); MEAN CORPUSCULAR HGB CONC 33.1 g/dl (32.0-36.5); MEAN CORPUSCULAR VOLUME 90.8 fl (80.0-96.0); MONO # 0.7 10^3/uL (0.0-0.8); MONO % 7.3 % (2.0-8.0); NEUTROPHILS % 64.8 % (36.0-66.0); PLATELET COUNT, AUTOMATED 410 10^3/uL (150-450); RED BLOOD COUNT 4.89 10^6/uL (4.00-5.40); WHITE BLOOD COUNT 9.3 10^3/uL (4.0-10.0)
[2023-05-03 19:08] LABS: ALBUMIN 3.8 G/DL (3.2-5.2); ALKALINE PHOSPHATASE 77 U/L (46-116); ALT/SGPT < 9 U/L (7.0-40); AST/SGOT 10 U/L (<34); BILIRUBIN,TOTAL 0.4 MG/DL (0.3-1.2); BLOOD UREA NITROGEN 22 MG/DL (9-23); CALCIUM LEVEL 10.1 MG/DL (8.3-10.6); CARBON DIOXIDE LEVEL 28 MMOL/L (20-31); CHLORIDE LEVEL 100 MMOL/L (98-107); CHOLESTEROL LEVEL 217 MG/DL (<200); CHOLESTEROL RISK RATIO 3.71 (<5); CREATININE FOR GFR 0.97 MG/DL (0.55-1.30); GLOMERULAR FILTRATION RATE 59.3 (>39); GLUCOSE, FASTING 87 MG/DL (74-106); HDL CHOLESTEROL 58.4 MG/DL (>40); LDL CHOLESTEROL 124.4 MG/DL (<100); NON-HDL-C 158.6 MG/DL; POTASSIUM SERUM 4.7 MMOL/L (3.5-5.1); SODIUM LEVEL 136 MMOL/L (136-145); TOTAL PROTEIN 7.1 G/DL (5.7-8.2); TRIGLYCERIDES LEVEL 171 MG/DL (<150)
== END ==
LOC: M SFHCPLAZ 16:57
PROVIDERS: ATTEND Physician Assistant Medical
DX: E11.621 Type 2 diabetes mellitus with foot ulcer (principal); E78.2 Mixed hyperlipidemia; I10 Essential (primary) hypertension

== ENCOUNTER 2023-10-17 23:28 | Inpatient (IN) | payer MEDICARE, MEDICAID ==
[~2023-10-17] VITALS: Ht 160 cm; Wt 59.1 kg
[2023-10-18] MEDS: ACETAMINOPHEN TAB 650MG DOSE (2X325MG) PO ONE (00:29)
[2023-10-18] MEDS: NS 1,000 ML IV ONE (00:30)
[2023-10-18 00:45] LABS: BASO # 0.1 10^3/uL (0.0-0.2); BASO % 0.3 % (0.0-1.0); EOS % 0.1 % (0.0-3.0); HEMATOCRIT 35.5 % (36.0-47.0); HEMOGLOBIN 12.2 g/dl (12.0-15.5); LYMPH # 0.8 10^3/uL (1.5-5.0); LYMPH % 4.2 % (24.0-44.0); MEAN CORPUSCULAR HEMOGLOBIN 30.7 pg (27.0-33.0); MEAN CORPUSCULAR HGB CONC 34.4 g/dl (32.0-36.5); MEAN CORPUSCULAR VOLUME 89.2 fl (80.0-96.0); MONO # 1.3 10^3/uL (0.0-0.8); MONO % 6.4 % (2.0-8.0); NEUTROPHILS # 17.2 10^3/uL (1.5-8.5); NEUTROPHILS % 88.5 % (36.0-66.0); PLATELET COUNT, AUTOMATED 243 10^3/uL (150-450); RED BLOOD COUNT 3.98 10^6/uL (4.00-5.40); WHITE BLOOD COUNT 19.4 10^3/uL (4.0-10.0)
[2023-10-18 01:07] LABS: LIPASE 31 U/L (12-53)
[2023-10-18 01:08] LABS: CPK CREATINE PHOSPHOKINASE 53 U/L (34-145)
[2023-10-18 01:09] LABS: ALBUMIN 2.9 G/DL (3.2-5.2); ALKALINE PHOSPHATASE 65 U/L (46-116); ALT/SGPT < 9 U/L (7.0-40); AST/SGOT 14 U/L (<34); BILIRUBIN,DIRECT 0.2 MG/DL (<0.4); BILIRUBIN,TOTAL 0.5 MG/DL (0.3-1.2); BLOOD UREA NITROGEN 19 MG/DL (9-23); CALCIUM LEVEL 8.9 MG/DL (8.3-10.6); CARBON DIOXIDE LEVEL 24 MMOL/L (20-31); CHLORIDE LEVEL 99 MMOL/L (98-107); CK-MB VALUE MASS < 1.0 NG/ML (<3.6); CREATININE FOR GFR 0.94 MG/DL (0.55-1.30); GLOMERULAR FILTRATION RATE > 60.0 (>39); GLUCOSE, FASTING 136 MG/DL (74-106); MB/CK RELATIVE INDEX 1.88 (< OR =4); SODIUM LEVEL 130 MMOL/L (136-145); TOTAL PROTEIN 6.5 G/DL (5.7-8.2)
[2023-10-18] MEDS: PIPERACILLIN/TAZOBACTAM SOD 4.5 GM in D5W MINI-BAG PLUS 50 ML IV ONE (01:36)
[2023-10-18 02:04] LABS: CK-MB VALUE MASS < 1.0 NG/ML (<3.6)
[2023-10-18 02:28] LABS: CPK CREATINE PHOSPHOKINASE 62 U/L (34-145); MB/CK RELATIVE INDEX 1.61 (< OR =4)
[2023-10-18] MEDS ORDERED: ACETAMINOPHEN TAB 650MG DOSE (2X325MG) PO PRN (03:25)
[2023-10-18] MEDS ORDERED: GLUCAGON INJ 1MG VIAL SC PRN (03:25)
[2023-10-18] MEDS ORDERED: DEXTROSE 50% 50ML SYRINGE IV PRN (03:25)
[2023-10-18] MEDS ORDERED: MAALOX 30 ML SUSP *UDC PO PRN (03:25)
[2023-10-18] MEDS ORDERED: MOM 30ML SUSPENSION UDC PO PRN (03:25)
[2023-10-18] MEDS ORDERED: GLUCOSE 4GM CHEW TABLET PO PRN (03:25)
[2023-10-18] MEDS: NS 1,000 ML IV SCH (04:22)
[2023-10-18 04:27] LABS: INR 1.14; PROTHROMBIN TIME 14.2 SECONDS (12.5-14.5)
[2023-10-18] MEDS ORDERED: [UNRECOGNIZED DRUG - CODE] PO (06:47)
[2023-10-18] MEDS ORDERED: HOME MED LIST COMPLETE! XX SCH (06:50)
[2023-10-18] MEDS: INSULIN LISPRO (NovoLOG) PER UNIT SC SCH ×2 (09:00→20:52)
[2023-10-18] MEDS: ENOXAPARIN 40MG/0.4ML SYRINGE (J1650 PER 10MG) SC SCH (09:00)
[2023-10-18] MEDS: DOCUSATE SODIUM 100MG CAPSULE PO SCH (09:00)
[2023-10-18] MEDS: DOXYCYCLINE HYCLATE 100 MG in D5W MINI-BAG PLUS 100 ML IV SCH (09:00)
[2023-10-18 10:15] VITALS: BP 122/46; TEMP 97.7; O2SAT 98
[2023-10-18 11:17] LABS: BASO # 0.1 10^3/uL (0.0-0.2); BASO % 0.3 % (0.0-1.0); EOS # 0.1 10^3/uL (0.0-0.5); EOS % 0.4 % (0.0-3.0); HEMATOCRIT 36.7 % (36.0-47.0); HEMOGLOBIN 12.4 g/dl (12.0-15.5); LYMPH # 1.1 10^3/uL (1.5-5.0); LYMPH % 6.1 % (24.0-44.0); MEAN CORPUSCULAR HEMOGLOBIN 30.4 pg (27.0-33.0); MEAN CORPUSCULAR HGB CONC 33.8 g/dl (32.0-36.5); MONO # 1.3 10^3/uL (0.0-0.8); MONO % 7.1 % (2.0-8.0); NEUTROPHILS # 15.8 10^3/uL (1.5-8.5); NEUTROPHILS % 85.6 % (36.0-66.0); PLATELET COUNT, AUTOMATED 247 10^3/uL (150-450); RED BLOOD COUNT 4.08 10^6/uL (4.00-5.40); WHITE BLOOD COUNT 18.5 10^3/uL (4.0-10.0)
[2023-10-18 11:30] LABS: ERYTHROCYTE SEDIMENTATION RATE 46 mm/hr (0-30)
[2023-10-18] MEDS: CLOPIDOGREL 75 MG TAB PO SCH (11:36)
[2023-10-18] MEDS: GLIMEPIRIDE 1 MG TABLET PO SCH (11:37)
[2023-10-18] MEDS: dilTIAZem 120MG **CD** CAPSULE PO SCH (11:37)
[2023-10-18 11:52] LABS: PROCALCITONIN 0.64 ng/ml
[2023-10-18 11:55] LABS: ALBUMIN 2.5 G/DL (3.2-5.2); ALKALINE PHOSPHATASE 64 U/L (46-116); ALT/SGPT 11 U/L (7.0-40); AST/SGOT 15 U/L (<34); BILIRUBIN,TOTAL 0.6 MG/DL (0.3-1.2); BLOOD UREA NITROGEN 15 MG/DL (9-23); CALCIUM LEVEL 8.6 MG/DL (8.3-10.6); CARBON DIOXIDE LEVEL 22 MMOL/L (20-31); CHLORIDE LEVEL 106 MMOL/L (98-107); CREATININE FOR GFR 0.76 MG/DL (0.55-1.30); GLOMERULAR FILTRATION RATE > 60.0 (>39); GLUCOSE, FASTING 155 MG/DL (74-106); POTASSIUM SERUM 3.8 MMOL/L (3.5-5.1); SODIUM LEVEL 134 MMOL/L (136-145); TOTAL PROTEIN 5.8 G/DL (5.7-8.2)
[2023-10-18] MEDS: LR 1,000 ML IV ONE ×2 (13:27→16:19)
[2023-10-18] MEDS: CEFTAROLINE FOSAMIL 600 MG in D5W MINI-BAG PLUS 50 ML IV SCH (16:18)
[2023-10-18 20:48] VITALS: BP 125/47; TEMP 98.4; O2SAT 96
[2023-10-18] MEDS: LR 1,000 ML IV SCH (21:00)
[2023-10-18] MEDS: EZETIMIBE 10MG TABLET (ZETIA) PO SCH (21:00)
[2023-10-19 06:18] VITALS: BP 123/54; TEMP 98.1; O2SAT 96
[2023-10-19 06:22] LABS: HEMATOCRIT 30.6 % (36.0-47.0); HEMOGLOBIN 10.7 g/dl (12.0-15.5); MEAN CORPUSCULAR HEMOGLOBIN 30.5 pg (27.0-33.0); MEAN CORPUSCULAR VOLUME 87.2 fl (80.0-96.0); PLATELET COUNT, AUTOMATED 212 10^3/uL (150-450); RED BLOOD COUNT 3.51 10^6/uL (4.00-5.40); WHITE BLOOD COUNT 14.1 10^3/uL (4.0-10.0)
[2023-10-19 06:56] LABS: ALKALINE PHOSPHATASE 56 U/L (46-116); ALT/SGPT < 9 U/L (7.0-40); AST/SGOT 11 U/L (<34); BILIRUBIN,TOTAL 0.8 MG/DL (0.3-1.2); BLOOD UREA NITROGEN 10 MG/DL (9-23); CARBON DIOXIDE LEVEL 23 MMOL/L (20-31); CHLORIDE LEVEL 103 MMOL/L (98-107); CREATININE FOR GFR 0.78 MG/DL (0.55-1.30); GLOMERULAR FILTRATION RATE > 60.0 (>39); GLUCOSE, FASTING 109 MG/DL (74-106); MAGNESIUM LEVEL 1.6 MG/DL (1.8-2.4); POTASSIUM SERUM 3.2 MMOL/L (3.5-5.1); SODIUM LEVEL 134 MMOL/L (136-145); TOTAL PROTEIN 5.2 G/DL (5.7-8.2)
[2023-10-19 08:00] VITALS: BP 106/36; TEMP 97.7
[2023-10-19] MEDS: POTASSIUM CHLORIDE 10MEQ SR TABLET PO ONE (09:44)
[2023-10-19 09:48] LABS: C REACTIVE PROTEIN QUANTITATIV 17.2 MG/DL (<1.0)
[2023-10-19 10:01] LABS: PROCALCITONIN 0.44 ng/ml
[2023-10-19] MEDS: KCL 40MEQ in NS 1000ML 1,000 ML IV SCH (10:49)
[2023-10-19 13:45] VITALS: BP 113/43; TEMP 97.5
[2023-10-19 21:36] VITALS: BP 128/90; TEMP 97.7; O2SAT 89
[2023-10-20 06:00] VITALS: BP 121/68; TEMP 97.1; O2SAT 98
[2023-10-20 08:10] LABS: BASO % 0.3 % (0.0-1.0); EOS # 0.6 10^3/uL (0.0-0.5); EOS % 4.8 % (0.0-3.0); HEMATOCRIT 29.9 % (36.0-47.0); HEMOGLOBIN 10.2 g/dl (12.0-15.5); LYMPH # 1.4 10^3/uL (1.5-5.0); LYMPH % 11.8 % (24.0-44.0); MEAN CORPUSCULAR HEMOGLOBIN 30.3 pg (27.0-33.0); MEAN CORPUSCULAR HGB CONC 34.1 g/dl (32.0-36.5); MEAN CORPUSCULAR VOLUME 88.7 fl (80.0-96.0); MONO # 0.9 10^3/uL (0.0-0.8); MONO % 7.7 % (2.0-8.0); NEUTROPHILS # 8.6 10^3/uL (1.5-8.5); NEUTROPHILS % 74.9 % (36.0-66.0); PLATELET COUNT, AUTOMATED 246 10^3/uL (150-450); RED BLOOD COUNT 3.37 10^6/uL (4.00-5.40); WHITE BLOOD COUNT 11.5 10^3/uL (4.0-10.0)
[2023-10-20 08:37] LABS: BLOOD UREA NITROGEN 9 MG/DL (9-23); CALCIUM LEVEL 8.2 MG/DL (8.3-10.6); CARBON DIOXIDE LEVEL 23 MMOL/L (20-31); CHLORIDE LEVEL 107 MMOL/L (98-107); CREATININE FOR GFR 0.78 MG/DL (0.55-1.30); GLOMERULAR FILTRATION RATE > 60.0 (>39); GLUCOSE, FASTING 116 MG/DL (74-106); POTASSIUM SERUM 4.1 MMOL/L (3.5-5.1); SODIUM LEVEL 136 MMOL/L (136-145)
[2023-10-20 14:00] VITALS: BP 137/59; TEMP 97.3; O2SAT 94
[2023-10-20] MEDS: AUGMENTIN 875 MG TAB PO SCH (21:03)
[2023-10-20 22:00] VITALS: BP_SYST 1; BP_SYST 137; BP_DIAS 60; TEMP 97.7; O2SAT 99
[2023-10-21 05:39] VITALS: BP 140/59; TEMP 98.5; O2SAT 98
[2023-10-21 07:51] LABS: BASO # 0.1 10^3/uL (0.0-0.2); BASO % 0.6 % (0.0-1.0); EOS # 0.7 10^3/uL (0.0-0.5); EOS % 6.8 % (0.0-3.0); HEMATOCRIT 29.3 % (36.0-47.0); LYMPH # 1.6 10^3/uL (1.5-5.0); LYMPH % 15.2 % (24.0-44.0); MEAN CORPUSCULAR HEMOGLOBIN 30.7 pg (27.0-33.0); MEAN CORPUSCULAR HGB CONC 34.1 g/dl (32.0-36.5); MEAN CORPUSCULAR VOLUME 89.9 fl (80.0-96.0); MONO # 0.8 10^3/uL (0.0-0.8); MONO % 7.6 % (2.0-8.0); NEUTROPHILS # 7.5 10^3/uL (1.5-8.5); NEUTROPHILS % 69.1 % (36.0-66.0); PLATELET COUNT, AUTOMATED 278 10^3/uL (150-450); RED BLOOD COUNT 3.26 10^6/uL (4.00-5.40); WHITE BLOOD COUNT 10.8 10^3/uL (4.0-10.0)
[2023-10-21 08:15] LABS: BLOOD UREA NITROGEN 9 MG/DL (9-23); CALCIUM LEVEL 8.5 MG/DL (8.3-10.6); CARBON DIOXIDE LEVEL 26 MMOL/L (20-31); CHLORIDE LEVEL 102 MMOL/L (98-107); CREATININE FOR GFR 0.81 MG/DL (0.55-1.30); GLOMERULAR FILTRATION RATE > 60.0 (>39); GLUCOSE, FASTING 122 MG/DL (74-106); POTASSIUM SERUM 4.1 MMOL/L (3.5-5.1); SODIUM LEVEL 134 MMOL/L (136-145)
[2023-10-21 20:27] VITALS: BP 144/60; TEMP 97.9; O2SAT 94
[2023-10-22 04:47] VITALS: BP 133/63; TEMP 97.5; O2SAT 91
[2023-10-22 06:26] LABS: BASO # 0.1 10^3/uL (0.0-0.2); EOS # 0.8 10^3/uL (0.0-0.5); EOS % 7.6 % (0.0-3.0); HEMATOCRIT 32.2 % (36.0-47.0); HEMOGLOBIN 10.7 g/dl (12.0-15.5); LYMPH # 1.9 10^3/uL (1.5-5.0); LYMPH % 18.1 % (24.0-44.0); MEAN CORPUSCULAR HEMOGLOBIN 30.1 pg (27.0-33.0); MEAN CORPUSCULAR HGB CONC 33.2 g/dl (32.0-36.5); MEAN CORPUSCULAR VOLUME 90.4 fl (80.0-96.0); MONO # 0.9 10^3/uL (0.0-0.8); MONO % 8.8 % (2.0-8.0); NEUTROPHILS # 6.5 10^3/uL (1.5-8.5); NEUTROPHILS % 63.2 % (36.0-66.0); PLATELET COUNT, AUTOMATED 318 10^3/uL (150-450); RED BLOOD COUNT 3.56 10^6/uL (4.00-5.40); WHITE BLOOD COUNT 10.3 10^3/uL (4.0-10.0)
[2023-10-22 06:42] LABS: BLOOD UREA NITROGEN 12 MG/DL (9-23); CALCIUM LEVEL 8.6 MG/DL (8.3-10.6); CARBON DIOXIDE LEVEL 25 MMOL/L (20-31); CHLORIDE LEVEL 104 MMOL/L (98-107); CREATININE FOR GFR 0.81 MG/DL (0.55-1.30); GLOMERULAR FILTRATION RATE > 60.0 (>39); GLUCOSE, FASTING 121 MG/DL (74-106); POTASSIUM SERUM 4.2 MMOL/L (3.5-5.1); SODIUM LEVEL 136 MMOL/L (136-145)
[2023-10-22] MEDS: DOXYCYCLINE HYCLATE 100MG TABLET PO SCH (21:42)
[2023-10-23 05:50] VITALS: BP 136/61; TEMP 97.2; O2SAT 95
[2023-10-23 06:35] LABS: BASO # 0.1 10^3/uL (0.0-0.2); BASO % 0.9 % (0.0-1.0); EOS # 0.9 10^3/uL (0.0-0.5); EOS % 8.5 % (0.0-3.0); HEMATOCRIT 30.9 % (36.0-47.0); HEMOGLOBIN 10.5 g/dl (12.0-15.5); LYMPH # 2.1 10^3/uL (1.5-5.0); LYMPH % 19.7 % (24.0-44.0); MEAN CORPUSCULAR HEMOGLOBIN 30.9 pg (27.0-33.0); MEAN CORPUSCULAR VOLUME 90.9 fl (80.0-96.0); MONO # 0.9 10^3/uL (0.0-0.8); MONO % 8.5 % (2.0-8.0); NEUTROPHILS # 6.4 10^3/uL (1.5-8.5); NEUTROPHILS % 60.6 % (36.0-66.0); PLATELET COUNT, AUTOMATED 367 10^3/uL (150-450); WHITE BLOOD COUNT 10.5 10^3/uL (4.0-10.0)
[2023-10-23 07:00] LABS: BLOOD UREA NITROGEN 15 MG/DL (9-23); CALCIUM LEVEL 8.4 MG/DL (8.3-10.6); CARBON DIOXIDE LEVEL 25 MMOL/L (20-31); CHLORIDE LEVEL 107 MMOL/L (98-107); CREATININE FOR GFR 0.86 MG/DL (0.55-1.30); GLOMERULAR FILTRATION RATE > 60.0 (>39); GLUCOSE, FASTING 117 MG/DL (74-106); POTASSIUM SERUM 4.4 MMOL/L (3.5-5.1); SODIUM LEVEL 137 MMOL/L (136-145)
[2023-10-24 05:23] VITALS: BP 124/58; TEMP 97.5; O2SAT 97
[2023-10-24 06:19] LABS: BASO # 0.1 10^3/uL (0.0-0.2); EOS # 0.8 10^3/uL (0.0-0.5); EOS % 8.4 % (0.0-3.0); HEMATOCRIT 32.2 % (36.0-47.0); LYMPH # 2.1 10^3/uL (1.5-5.0); LYMPH % 21.8 % (24.0-44.0); MEAN CORPUSCULAR HEMOGLOBIN 30.6 pg (27.0-33.0); MEAN CORPUSCULAR HGB CONC 34.2 g/dl (32.0-36.5); MEAN CORPUSCULAR VOLUME 89.7 fl (80.0-96.0); MONO # 0.8 10^3/uL (0.0-0.8); MONO % 8.6 % (2.0-8.0); NEUTROPHILS # 5.5 10^3/uL (1.5-8.5); NEUTROPHILS % 57.7 % (36.0-66.0); PLATELET COUNT, AUTOMATED 428 10^3/uL (150-450); RED BLOOD COUNT 3.59 10^6/uL (4.00-5.40); WHITE BLOOD COUNT 9.5 10^3/uL (4.0-10.0)
[2023-10-24 06:34] LABS: BLOOD UREA NITROGEN 14 MG/DL (9-23); CALCIUM LEVEL 8.6 MG/DL (8.3-10.6); CARBON DIOXIDE LEVEL 24 MMOL/L (20-31); CHLORIDE LEVEL 105 MMOL/L (98-107); CREATININE FOR GFR 0.82 MG/DL (0.55-1.30); GLOMERULAR FILTRATION RATE > 60.0 (>39); GLUCOSE, FASTING 114 MG/DL (74-106); POTASSIUM SERUM 4.3 MMOL/L (3.5-5.1); SODIUM LEVEL 136 MMOL/L (136-145)
[2023-10-24 21:41] VITALS: BP 142/59; TEMP 97.5; O2SAT 96
[2023-10-25 06:39] LABS: BASO # 0.1 10^3/uL (0.0-0.2); EOS # 0.7 10^3/uL (0.0-0.5); EOS % 8.1 % (0.0-3.0); HEMATOCRIT 33.1 % (36.0-47.0); HEMOGLOBIN 11.2 g/dl (12.0-15.5); LYMPH % 23.1 % (24.0-44.0); MEAN CORPUSCULAR HEMOGLOBIN 30.6 pg (27.0-33.0); MEAN CORPUSCULAR HGB CONC 33.8 g/dl (32.0-36.5); MEAN CORPUSCULAR VOLUME 90.4 fl (80.0-96.0); MONO # 0.9 10^3/uL (0.0-0.8); MONO % 9.8 % (2.0-8.0); NEUTROPHILS # 4.9 10^3/uL (1.5-8.5); NEUTROPHILS % 55.6 % (36.0-66.0); PLATELET COUNT, AUTOMATED 460 10^3/uL (150-450); RED BLOOD COUNT 3.66 10^6/uL (4.00-5.40); WHITE BLOOD COUNT 8.8 10^3/uL (4.0-10.0)
[2023-10-25 07:02] VITALS: BP 143/60; TEMP 97.7; O2SAT 96
[2023-10-25 07:02] LABS: BLOOD UREA NITROGEN 13 MG/DL (9-23); CALCIUM LEVEL 8.7 MG/DL (8.3-10.6); CARBON DIOXIDE LEVEL 26 MMOL/L (20-31); CHLORIDE LEVEL 105 MMOL/L (98-107); CREATININE FOR GFR 0.85 MG/DL (0.55-1.30); GLOMERULAR FILTRATION RATE > 60.0 (>39); GLUCOSE, FASTING 107 MG/DL (74-106); POTASSIUM SERUM 4.3 MMOL/L (3.5-5.1); SODIUM LEVEL 136 MMOL/L (136-145)
[2023-10-25 21:00] VITALS: BP 145/68; TEMP 97.7; O2SAT 96
[2023-10-26 06:07] LABS: BASO # 0.1 10^3/uL (0.0-0.2); EOS # 0.6 10^3/uL (0.0-0.5); HEMATOCRIT 34.7 % (36.0-47.0); HEMOGLOBIN 11.7 g/dl (12.0-15.5); LYMPH % 20.1 % (24.0-44.0); MEAN CORPUSCULAR HEMOGLOBIN 30.4 pg (27.0-33.0); MEAN CORPUSCULAR HGB CONC 33.7 g/dl (32.0-36.5); MEAN CORPUSCULAR VOLUME 90.1 fl (80.0-96.0); MONO # 0.9 10^3/uL (0.0-0.8); MONO % 9.4 % (2.0-8.0); NEUTROPHILS # 6.1 10^3/uL (1.5-8.5); NEUTROPHILS % 61.5 % (36.0-66.0); PLATELET COUNT, AUTOMATED 467 10^3/uL (150-450); RED BLOOD COUNT 3.85 10^6/uL (4.00-5.40); WHITE BLOOD COUNT 9.9 10^3/uL (4.0-10.0)
[2023-10-26 06:37] LABS: CALCIUM LEVEL 8.9 MG/DL (8.3-10.6); CREATININE FOR GFR 0.96 MG/DL (0.55-1.30); POTASSIUM SERUM 4.9 MMOL/L (3.5-5.1)
[2023-10-26 06:40] VITALS: BP 143/63; TEMP 97.9; O2SAT 96
[2023-10-27 06:11] LABS: BASO # 0.1 10^3/uL (0.0-0.2); BASO % 1.1 % (0.0-1.0); EOS # 0.6 10^3/uL (0.0-0.5); EOS % 6.5 % (0.0-3.0); HEMATOCRIT 34.9 % (36.0-47.0); HEMOGLOBIN 11.6 g/dl (12.0-15.5); LYMPH # 2.1 10^3/uL (1.5-5.0); LYMPH % 23.1 % (24.0-44.0); MEAN CORPUSCULAR HEMOGLOBIN 30.1 pg (27.0-33.0); MEAN CORPUSCULAR HGB CONC 33.2 g/dl (32.0-36.5); MEAN CORPUSCULAR VOLUME 90.6 fl (80.0-96.0); MONO # 0.8 10^3/uL (0.0-0.8); NEUTROPHILS # 5.4 10^3/uL (1.5-8.5); NEUTROPHILS % 58.9 % (36.0-66.0); PLATELET COUNT, AUTOMATED 482 10^3/uL (150-450); RED BLOOD COUNT 3.85 10^6/uL (4.00-5.40); WHITE BLOOD COUNT 9.1 10^3/uL (4.0-10.0)
[2023-10-27 06:43] LABS: BLOOD UREA NITROGEN 17 MG/DL (9-23); CALCIUM LEVEL 9.2 MG/DL (8.3-10.6); CARBON DIOXIDE LEVEL 27 MMOL/L (20-31); CHLORIDE LEVEL 102 MMOL/L (98-107); CREATININE FOR GFR 0.89 MG/DL (0.55-1.30); GLOMERULAR FILTRATION RATE > 60.0 (>39); GLUCOSE, FASTING 115 MG/DL (74-106); SODIUM LEVEL 133 MMOL/L (136-145)
[2023-10-27 06:50] VITALS: BP 135/65; TEMP 97.7; O2SAT 96
[2023-10-27 08:07] VITALS: BP 131/64
[2023-10-27] MEDS ORDERED: DOXY-444 PO (11:24)
[2023-10-27] MEDS ORDERED: AMOX875T2 PO (12:01)
[2023-10-27] MEDS ORDERED: AUGMENTIN 875 MG TAB PO SCH (21:00)
== END 2023-10-27 12:30 | disposition home health service (06) | DRG 854 ==
LOC: EDBD 23:28 → M ED 23:28 → M ED INP 10-18 03:22 → M MS5PR 10-18 09:15
PROVIDERS: ADMIT Family Medicine; ATTEND General Practice
PROC: 0JBN0ZZ Excision of Right Lower Leg Subcutaneous Tissue and Fascia, Open Approach (ICD-10-PCS; principal; 2023-10-18)
PROC: 0LBN0ZZ Excision of Right Lower Leg Tendon, Open Approach (ICD-10-PCS; 2023-10-18)
DX: A41.9 Sepsis, unspecified organism (principal); L03.115 Cellulitis of right lower limb; I48.20 Chronic atrial fibrillation, unspecified; D62 Acute posthemorrhagic anemia; E87.20 Acidosis, unspecified; L97.519 Non-pressure chronic ulcer of other part of right foot with unspecified severity; M81.0 Age-related osteoporosis without current pathological fracture; I10 Essential (primary) hypertension; E11.51 Type 2 diabetes mellitus with diabetic peripheral angiopathy without gangrene; E11.621 Type 2 diabetes mellitus with foot ulcer; Z95.0 Presence of cardiac pacemaker; E78.5 Hyperlipidemia, unspecified; Z88.8 Allergy status to other drugs, medicaments and biological substances; Z79.899 Other long term (current) drug therapy; Z87.891 Personal history of nicotine dependence; B95.62 Methicillin resistant Staphylococcus aureus infection as the cause of diseases classified elsewhere; B95.5 Unspecified streptococcus as the cause of diseases classified elsewhere

== ENCOUNTER → 2023-11-01 | Outpatient (CLI) | payer MEDICARE, MEDICAID ==
[~2023-11-01] MED LIST changes: +AMOX875T2 PO; +DOXY-444 PO; +[UNRECOGNIZED DRUG - CODE] PO
[2023-11-01 17:42] LABS: BASO # 0.1 10^3/uL (0.0-0.2); BASO % 1.3 % (0.0-1.0); EOS # 0.3 10^3/uL (0.0-0.5); EOS % 2.5 % (0.0-3.0); HEMATOCRIT 37.4 % (36.0-47.0); HEMOGLOBIN 12.3 g/dl (12.0-15.5); LYMPH # 2.7 10^3/uL (1.5-5.0); LYMPH % 25.8 % (24.0-44.0); MEAN CORPUSCULAR HGB CONC 32.9 g/dl (32.0-36.5); MEAN CORPUSCULAR VOLUME 91.2 fl (80.0-96.0); MONO # 0.8 10^3/uL (0.0-0.8); MONO % 8.1 % (2.0-8.0); NEUTROPHILS # 6.4 10^3/uL (1.5-8.5); PLATELET COUNT, AUTOMATED 591 10^3/uL (150-450); WHITE BLOOD COUNT 10.3 10^3/uL (4.0-10.0)
[2023-11-01 18:13] LABS: ALBUMIN 3.3 G/DL (3.2-5.2); ALKALINE PHOSPHATASE 85 U/L (46-116); ALT/SGPT 13 U/L (7.0-40); AST/SGOT 10 U/L (<34); BILIRUBIN,TOTAL 0.4 MG/DL (0.3-1.2); BLOOD UREA NITROGEN 17 MG/DL (9-23); CALCIUM LEVEL 9.7 MG/DL (8.3-10.6); CARBON DIOXIDE LEVEL 29 MMOL/L (20-31); CHLORIDE LEVEL 101 MMOL/L (98-107); CREATININE FOR GFR 0.88 MG/DL (0.55-1.30); GLOMERULAR FILTRATION RATE > 60.0 (>39); GLUCOSE, FASTING 108 MG/DL (74-106); SODIUM LEVEL 134 MMOL/L (136-145)
== END ==
LOC: M PLALAB 16:00
PROVIDERS: ATTEND Physician Assistant Medical
DX: A40.0 Sepsis due to streptococcus, group A (principal); E11.621 Type 2 diabetes mellitus with foot ulcer

== ENCOUNTER → 2023-12-20 | Outpatient (CLI) | payer MEDICARE, MEDICAID | LOC: M RAD 12:37 | PROVIDERS: ATTEND Physician Assistant | DX: M20.62 Acquired deformities of toe(s), unspecified, left foot (principal); M19.072 Primary osteoarthritis, left ankle and foot ==

== ENCOUNTER 2023-12-31 14:57 | Emergency (ER) | payer MEDICARE, MEDICAID ==
[~2023-12-31] VITALS: Ht 160 cm; Wt 60.1 kg
[2023-12-31 15:00] VITALS: BP 180/77; TEMP 96.6; O2SAT 98
== END 2023-12-31 15:45 | disposition left against medical advice (07) ==
LOC: M ED 14:57
DX: Z53.21 Procedure and treatment not carried out due to patient leaving prior to being seen by health care provider (principal); L97.512 Non-pressure chronic ulcer of other part of right foot with fat layer exposed; R68.89 Other general symptoms and signs

== ENCOUNTER → 2023-12-31 | Outpatient (CLI) | payer MEDICARE, MEDICAID | LOC: M RAD 13:40 | PROVIDERS: ATTEND Surgery | DX: L97.512 Non-pressure chronic ulcer of other part of right foot with fat layer exposed (principal); R68.89 Other general symptoms and signs ==

== ENCOUNTER 2024-01-09 15:42 | Inpatient (IN) | payer MEDICARE, MEDICAID ==
[~2024-01-09] VITALS: Ht 160 cm; Wt 60.2 kg
[~2024-01-09 15:42] MED LIST changes: -CEPH500C PO; -SENN-121 PO
[2024-01-09 16:47] VITALS: BP 153/76; TEMP 97.5; O2SAT 100
[2024-01-09] MEDS ORDERED: MOM 30ML SUSPENSION UDC PO PRN (16:50)
[2024-01-09] MEDS ORDERED: ACETAMINOPHEN TAB 650MG DOSE (2X325MG) PO PRN (16:50)
[2024-01-09] MEDS ORDERED: MAALOX 30 ML SUSP *UDC PO PRN (16:50)
[2024-01-09 17:56] LABS: BASO # 0.1 10^3/uL (0.0-0.2); EOS # 0.4 10^3/uL (0.0-0.5); EOS % 4.2 % (0.0-3.0); HEMATOCRIT 36.3 % (36.0-47.0); HEMOGLOBIN 11.8 g/dl (12.0-15.5); LYMPH # 1.8 10^3/uL (1.5-5.0); MEAN CORPUSCULAR HEMOGLOBIN 29.4 pg (27.0-33.0); MEAN CORPUSCULAR HGB CONC 32.5 g/dl (32.0-36.5); MEAN CORPUSCULAR VOLUME 90.3 fl (80.0-96.0); MONO # 0.5 10^3/uL (0.0-0.8); MONO % 6.4 % (2.0-8.0); NEUTROPHILS # 5.5 10^3/uL (1.5-8.5); NEUTROPHILS % 66.2 % (36.0-66.0); PLATELET COUNT, AUTOMATED 473 10^3/uL (150-450); RED BLOOD COUNT 4.02 10^6/uL (4.00-5.40); WHITE BLOOD COUNT 8.3 10^3/uL (4.0-10.0)
[2024-01-09 18:19] LABS: HEMOGLOBIN A1c 5.9 % (4.0-6.0)
[2024-01-09] MEDS ORDERED: GLUCAGON INJ 1MG VIAL SC PRN (18:20)
[2024-01-09] MEDS ORDERED: GLUCOSE 4GM CHEW TABLET PO PRN (18:20)
[2024-01-09] MEDS ORDERED: DEXTROSE 50% 50ML SYRINGE IV PRN (18:20)
[2024-01-09 18:21] LABS: ALKALINE PHOSPHATASE 69 U/L (46-116); ALT/SGPT < 9 U/L (7.0-40); AST/SGOT 10 U/L (<34); BILIRUBIN,TOTAL 0.2 MG/DL (0.3-1.2); BLOOD UREA NITROGEN 14 MG/DL (9-23); CALCIUM LEVEL 10.1 MG/DL (8.3-10.6); CARBON DIOXIDE LEVEL 27 MMOL/L (20-31); CHLORIDE LEVEL 103 MMOL/L (98-107); CREATININE FOR GFR 0.79 MG/DL (0.55-1.30); GLOMERULAR FILTRATION RATE > 60.0 (>39); GLUCOSE, FASTING 121 MG/DL (74-106); POTASSIUM SERUM 4.7 MMOL/L (3.5-5.1); SODIUM LEVEL 136 MMOL/L (136-145); TOTAL PROTEIN 6.6 G/DL (5.7-8.2)
[2024-01-09 18:35] LABS: PROCALCITONIN 0.06 ng/ml
[2024-01-09] MEDS ORDERED: SENN-121 PO (18:53)
[2024-01-09] MEDS ORDERED: CEPH500C PO (18:53)
[2024-01-09] MEDS ORDERED: HOME MED LIST COMPLETE! XX SCH (18:55)
[2024-01-09 20:19] VITALS: BP 170/75; TEMP 97.5; O2SAT 96
[2024-01-09] MEDS: VANCOMYCIN HCL 1,000 MG, VIAL MATE ADAPTER 1 EACH in D5W 250 ML IV ONE (20:40)
[2024-01-09] MEDS: DOCUSATE SODIUM 100MG CAPSULE PO SCH (20:41)
[2024-01-09] MEDS: INSULIN LISPRO (NovoLOG) PER UNIT SC SCH (20:42)
[2024-01-09] MEDS: CETIRIZINE (ZyrTEC) 10 MG TAB PO SCH (20:42)
[2024-01-09] MEDS: EZETIMIBE 10MG TABLET (ZETIA) PO SCH (20:42)
[2024-01-09] MEDS: PIPERACILLIN/TAZOBACTAM SOD 3.375 GM in D5W MINI-BAG PLUS 50 ML IV SCH (22:38)
[2024-01-10] MEDS: VANCOMYCIN HCL 1,000 MG, VIAL MATE ADAPTER 1 EACH in D5W 250 ML IV SCH (04:35)
[2024-01-10 05:38] VITALS: BP 152/64; TEMP 97.9; O2SAT 99
[2024-01-10 06:34] LABS: BASO # 0.1 10^3/uL (0.0-0.2); BASO % 1.3 % (0.0-1.0); EOS # 0.6 10^3/uL (0.0-0.5); EOS % 6.2 % (0.0-3.0); HEMATOCRIT 35.2 % (36.0-47.0); HEMOGLOBIN 11.9 g/dl (12.0-15.5); LYMPH # 1.9 10^3/uL (1.5-5.0); LYMPH % 21.8 % (24.0-44.0); MEAN CORPUSCULAR HEMOGLOBIN 29.8 pg (27.0-33.0); MEAN CORPUSCULAR HGB CONC 33.8 g/dl (32.0-36.5); MEAN CORPUSCULAR VOLUME 88.2 fl (80.0-96.0); MONO # 0.8 10^3/uL (0.0-0.8); MONO % 9.2 % (2.0-8.0); NEUTROPHILS # 5.4 10^3/uL (1.5-8.5); NEUTROPHILS % 61.2 % (36.0-66.0); PLATELET COUNT, AUTOMATED 412 10^3/uL (150-450); RED BLOOD COUNT 3.99 10^6/uL (4.00-5.40); WHITE BLOOD COUNT 8.9 10^3/uL (4.0-10.0)
[2024-01-10 07:09] LABS: C REACTIVE PROTEIN QUANTITATIV 1.3 MG/DL (<1.0); CALCIUM LEVEL 9.3 MG/DL (8.3-10.6); CREATININE FOR GFR 0.98 MG/DL (0.55-1.30); GLOMERULAR FILTRATION RATE 58.6 (>39); MAGNESIUM LEVEL 1.9 MG/DL (1.8-2.4)
[2024-01-10] MEDS: INSULIN LISPRO (NovoLOG) PER UNIT SC SCH (07:30)
[2024-01-10] MEDS: CLOPIDOGREL 75 MG TAB PO SCH (08:40)
[2024-01-10] MEDS: VITAMIN D 1,000 INTERNATIONAL UNITS TABLET PO SCH (08:41)
[2024-01-10] MEDS: ENOXAPARIN 40MG/0.4ML SYRINGE (J1650 PER 10MG) SC SCH (08:41)
[2024-01-10] MEDS: dilTIAZem 120MG **CD** CAPSULE PO SCH (08:41)
== END 2024-01-10 14:15 | disposition home or self-care (01) | DRG 638 ==
LOC: M MS5PR 16:27
PROVIDERS: ADMIT Student in an Organized Health Care Education/Training Program; ATTEND Internal Medicine
DX: E11.621 Type 2 diabetes mellitus with foot ulcer (principal); I48.20 Chronic atrial fibrillation, unspecified; L97.519 Non-pressure chronic ulcer of other part of right foot with unspecified severity; E11.51 Type 2 diabetes mellitus with diabetic peripheral angiopathy without gangrene; M81.0 Age-related osteoporosis without current pathological fracture; Z95.0 Presence of cardiac pacemaker; I10 Essential (primary) hypertension; E55.9 Vitamin D deficiency, unspecified; Z88.8 Allergy status to other drugs, medicaments and biological substances; Z79.899 Other long term (current) drug therapy; Z66 Do not resuscitate

== ENCOUNTER → 2024-01-09 | Outpatient (REF) | payer MEDICARE, MEDICAID ==
[~2024-01-09] MED LIST changes: +CEPH500C PO; +SENN-121 PO
== END ==
LOC: M SFHCWOUN 16:25
PROVIDERS: ATTEND Surgery
DX: R68.89 Other general symptoms and signs (principal)

== ENCOUNTER 2024-01-10 13:34 | Inpatient (IN) | payer MEDICARE, MEDICAID ==
[~2024-01-10] VITALS: Ht 160 cm; Wt 58.1 kg
[~2024-01-10 13:34] MED LIST changes: +CEPH500C PO; +DOXY-323 PO; +DOXY-440 PO; -DOXY-443 PO; -DOXY-444 PO; -GLIM1TAB4 PO; +GLIM1TAB84 PO; +SENN-121 PO
[2024-01-10 14:05] VITALS: TEMP 96.9; O2SAT 99
[2024-01-10] MEDS ORDERED: ACETAMINOPHEN 500 MG TAB PO PRN (14:05)
[2024-01-10] MEDS ORDERED: MAALOX 30 ML SUSP *UDC PO PRN (14:05)
[2024-01-10] MEDS ORDERED: DEXTROSE 50% 50ML SYRINGE IV PRN (14:05)
[2024-01-10] MEDS ORDERED: GLUCOSE 4 GM CHEW PO PRN (14:05)
[2024-01-10] MEDS ORDERED: CALCIUM CARBONATE 500 MG CHEW U/D PO PRN (14:05)
[2024-01-10] MEDS ORDERED: GLUCAGON INJ 1MG VIAL SC PRN (14:05)
[2024-01-10 14:10] VITALS: BP 142/76
[2024-01-10] MEDS: PIPERACILLIN/TAZOBACTAM SOD 3.375 GM in D5W MINI-BAG PLUS 50 ML IV SCH (16:04)
[2024-01-10] MEDS ORDERED: VANCOMYCIN HCL 1,000 MG, VIAL MATE ADAPTER 1 EACH in D5W 250 ML IV SCH (17:00)
[2024-01-10] MEDS: INSULIN LISPRO (NovoLOG) PER UNIT SC SCH ×2 (18:56→20:45)
[2024-01-10 20:00] VITALS: BP 124/60; TEMP 97.8; O2SAT 96
[2024-01-10] MEDS: LINEZOLID 600MG TABLET (ZYVOX) PO SCH (20:44)
[2024-01-10] MEDS: EZETIMIBE 10MG TABLET (ZETIA) PO SCH (20:44)
[2024-01-10] MEDS ORDERED: CEPHALEXIN 500 MG CAP PO SCH (21:00)
[2024-01-11 06:00] VITALS: BP 111/56; TEMP 97.9; O2SAT 96
[2024-01-11] MEDS: GLIMEPIRIDE 1 MG TABLET PO SCH (08:00)
[2024-01-11] MEDS: ENOXAPARIN 40MG/0.4ML SYRINGE (J1650 PER 10MG) SC SCH (10:45)
[2024-01-11] MEDS: CLOPIDOGREL 75 MG TAB PO SCH (10:46)
[2024-01-11] MEDS: VITAMIN D 1,000 INTERNATIONAL UNITS TABLET PO SCH (10:46)
[2024-01-11] MEDS: dilTIAZem 120MG **CD** CAPSULE PO SCH (10:47)
[2024-01-11 11:13] VITALS: BP 126/55; TEMP 97.9; O2SAT 96
[2024-01-11 14:00] VITALS: BP 142/65; TEMP 97.3; O2SAT 97
[2024-01-11 20:00] VITALS: BP 142/66; TEMP 97.4; O2SAT 96
[2024-01-11] MEDS: SENOKOT S TAB PO PRN (20:57)
[2024-01-12 06:28] VITALS: BP_SYST 123; BP_SYST 140; BP_DIAS 56; BP_DIAS 67; TEMP 97.2; TEMP 97.3; O2SAT 96
[2024-01-12 14:00] VITALS: BP 118/58; TEMP 98.1; O2SAT 70
[2024-01-12 19:57] VITALS: BP 144/68; TEMP 97.2; O2SAT 95
[2024-01-13 06:05] VITALS: BP 133/63; TEMP 97.3; O2SAT 95
[2024-01-13 07:06] LABS: HEMATOCRIT 34.8 % (36.0-47.0); HEMOGLOBIN 11.6 g/dl (12.0-15.5); MEAN CORPUSCULAR HEMOGLOBIN 29.5 pg (27.0-33.0); MEAN CORPUSCULAR HGB CONC 33.3 g/dl (32.0-36.5); MEAN CORPUSCULAR VOLUME 88.5 fl (80.0-96.0); PLATELET COUNT, AUTOMATED 417 10^3/uL (150-450); RED BLOOD COUNT 3.93 10^6/uL (4.00-5.40); WHITE BLOOD COUNT 7.2 10^3/uL (4.0-10.0)
[2024-01-13 14:00] VITALS: BP 133/60; TEMP 97.8; O2SAT 96
[2024-01-13 19:14] VITALS: BP 140/65; TEMP 96.8; O2SAT 96
[2024-01-14 05:17] VITALS: BP 142/67; TEMP 97; O2SAT 99
[2024-01-14] MEDS ORDERED: ACETAMINOPHEN TAB 650MG DOSE (2X325MG) PO PRN (08:28)
[2024-01-14 08:51] LABS: CREATININE FOR GFR 0.92 MG/DL (0.55-1.30); GLOMERULAR FILTRATION RATE > 60.0 (>39)
[2024-01-14 09:30] LABS: HEMOGLOBIN A1c 6.3 % (4.0-6.0)
[2024-01-14] MEDS ORDERED: ISOVUE-370 76% 100ML VIAL As Ordered ONE (12:18)
[2024-01-14 14:00] VITALS: BP 159/70; TEMP 97.1; O2SAT 98
[2024-01-14 14:20] LABS: C REACTIVE PROTEIN QUANTITATIV < 0.40 MG/DL (<1.0)
[2024-01-14 20:33] VITALS: BP 164/70; TEMP 97.3; O2SAT 94
[2024-01-14 20:59] VITALS: BP 153/68
[2024-01-15 06:30] VITALS: BP 143/67; TEMP 98.1; O2SAT 95
[2024-01-15 14:00] VITALS: BP 132/63; TEMP 97.5; O2SAT 95
[2024-01-15 20:28] VITALS: BP 111/54; TEMP 97.3; O2SAT 94
[2024-01-15 20:45] VITALS: BP 144/65; TEMP 97.3; O2SAT 92
[2024-01-16 05:55] VITALS: BP 137/63; TEMP 97.3; O2SAT 94
[2024-01-16 06:32] LABS: HEMATOCRIT 36.6 % (36.0-47.0); HEMOGLOBIN 12.1 g/dl (12.0-15.5); MEAN CORPUSCULAR HEMOGLOBIN 29.2 pg (27.0-33.0); MEAN CORPUSCULAR HGB CONC 33.1 g/dl (32.0-36.5); MEAN CORPUSCULAR VOLUME 88.2 fl (80.0-96.0); PLATELET COUNT, AUTOMATED 407 10^3/uL (150-450); RED BLOOD COUNT 4.15 10^6/uL (4.00-5.40); WHITE BLOOD COUNT 6.7 10^3/uL (4.0-10.0)
[2024-01-16 14:00] VITALS: BP 132/61; TEMP 97.3; O2SAT 95
[2024-01-16 20:03] VITALS: BP 142/66; TEMP 97.5; O2SAT 97
[2024-01-17 06:47] VITALS: BP 134/62; TEMP 97.4; O2SAT 98
[2024-01-17 09:00] VITALS: BP 132/64; TEMP 97.4; O2SAT 98
[2024-01-17 14:00] VITALS: BP 129/60; TEMP 97.6; O2SAT 96
[2024-01-17 19:56] VITALS: BP 136/64; TEMP 98.2; O2SAT 95
[2024-01-18 06:12] VITALS: BP 147/67; TEMP 98.1; O2SAT 99
[2024-01-18 09:08] VITALS: BP 118/58
== END 2024-01-18 13:10 | disposition home health service (06) | DRG 638 ==
LOC: M PM&R 14:05
PROVIDERS: ADMIT Student in an Organized Health Care Education/Training Program; ATTEND Student in an Organized Health Care Education/Training Program
DX: E11.621 Type 2 diabetes mellitus with foot ulcer (principal); I48.20 Chronic atrial fibrillation, unspecified; I10 Essential (primary) hypertension; M81.0 Age-related osteoporosis without current pathological fracture; E55.9 Vitamin D deficiency, unspecified; E78.5 Hyperlipidemia, unspecified; Z66 Do not resuscitate; Z79.899 Other long term (current) drug therapy; Z88.8 Allergy status to other drugs, medicaments and biological substances; E11.51 Type 2 diabetes mellitus with diabetic peripheral angiopathy without gangrene; L97.529 Non-pressure chronic ulcer of other part of left foot with unspecified severity; L97.519 Non-pressure chronic ulcer of other part of right foot with unspecified severity

== ENCOUNTER → 2024-02-19 | Outpatient (CLI) | payer MEDICARE, MEDICAID ==
[2024-02-19 15:55] LABS: HEMATOCRIT 41.4 % (36.0-47.0); HEMOGLOBIN 13.8 g/dl (12.0-15.5); MEAN CORPUSCULAR HEMOGLOBIN 30.1 pg (27.0-33.0); MEAN CORPUSCULAR HGB CONC 33.3 g/dl (32.0-36.5); MEAN CORPUSCULAR VOLUME 90.4 fl (80.0-96.0); PLATELET COUNT, AUTOMATED 322 10^3/uL (150-450); RED BLOOD COUNT 4.58 10^6/uL (4.00-5.40); WHITE BLOOD COUNT 6.9 10^3/uL (4.0-10.0)
== END ==
LOC: M PLALAB 13:27
PROVIDERS: ATTEND Physician Assistant
DX: Z01.818 Encounter for other preprocedural examination (principal); D69.8 Other specified hemorrhagic conditions

== ENCOUNTER → 2024-08-22 | Outpatient (CLI) | payer MEDICARE, MEDICAID ==
[~2024-08-22] MED LIST changes: -DOXY-323 PO; +DOXY-441 PO
== END ==
LOC: M WHC 14:14
PROVIDERS: ATTEND Physician Assistant Medical
DX: Z12.31 Encounter for screening mammogram for malignant neoplasm of breast (principal); M81.0 Age-related osteoporosis without current pathological fracture; M85.851 Other specified disorders of bone density and structure, right thigh; R92.323 Mammographic fibroglandular density, bilateral breasts

== ENCOUNTER → 2024-11-14 | Outpatient (CLI) | payer MEDICARE, MEDICAID ==
[2024-11-14 15:14] LABS: BASO # 0.1 10^3/uL (0.0-0.2); BASO % 1.1 % (0.0-1.0); EOS # 0.2 10^3/uL (0.0-0.5); HEMATOCRIT 43.9 % (36.0-47.0); HEMOGLOBIN 14.6 g/dl (12.0-15.5); LYMPH % 22.3 % (24.0-44.0); MEAN CORPUSCULAR HEMOGLOBIN 30.5 pg (27.0-33.0); MEAN CORPUSCULAR HGB CONC 33.3 g/dl (32.0-36.5); MEAN CORPUSCULAR VOLUME 91.8 fl (80.0-96.0); MONO # 0.7 10^3/uL (0.0-0.8); MONO % 7.4 % (2.0-8.0); NEUTROPHILS % 66.9 % (36.0-66.0); PLATELET COUNT, AUTOMATED 376 10^3/uL (150-450); RED BLOOD COUNT 4.78 10^6/uL (4.00-5.40)
[2024-11-14 15:29] LABS: HEMOGLOBIN A1c 5.9 % (4.0-6.0)
[2024-11-14 15:36] LABS: ALBUMIN 3.7 G/DL (3.2-5.2); ALKALINE PHOSPHATASE 79 U/L (35-104); ALT/SGPT 14 U/L (7.0-40); AST/SGOT 15 U/L (<34); BILIRUBIN,TOTAL 0.6 MG/DL (0.3-1.2); BLOOD UREA NITROGEN 17 MG/DL (9-23); CARBON DIOXIDE LEVEL 29 MMOL/L (20-31); CHLORIDE LEVEL 103 MMOL/L (98-107); CHOLESTEROL LEVEL 201 MG/DL (<200); CREATININE FOR GFR 0.82 MG/DL (0.55-1.30); GLOMERULAR FILTRATION RATE > 60.0 (>39); GLUCOSE, FASTING 76 MG/DL (74-106); HDL CHOLESTEROL 55.8 MG/DL (>40); LDL CHOLESTEROL 109.4 MG/DL (<100); NON-HDL-C 145.2 MG/DL; POTASSIUM SERUM 4.6 MMOL/L (3.5-5.1); PTH INTACT 71.4 PG/ML (18.5-88.0); SODIUM LEVEL 138 MMOL/L (136-145); TOTAL PROTEIN 7.2 G/DL (5.7-8.2); TRIGLYCERIDES LEVEL 179 MG/DL (<150)
[2024-11-14 15:38] LABS: VITAMIN B12 LEVEL 486 PG/ML (211-911)
[2024-11-19 08:17] LABS: VITAMIN B6,PYRIDOXAL PHOSPHATE 11.8 ng/mL (2.1-21.7)
[2024-11-20 07:37] LABS: NICOTINAMIDE < 20 ng/mL (see note); NICOTINIC ACID < 20 ng/mL (see note)
[2024-11-21 12:42] LABS: VITAMIN B7 (BIOTIN) > 3600.0 pg/mL (221.0-3004.0)
== END ==
LOC: M PLALAB 12:49
PROVIDERS: ATTEND Physician Assistant Medical
DX: L65.9 Nonscarring hair loss, unspecified (principal); L60.8 Other nail disorders; E11.621 Type 2 diabetes mellitus with foot ulcer; E78.2 Mixed hyperlipidemia; E55.9 Vitamin D deficiency, unspecified; I10 Essential (primary) hypertension

== ENCOUNTER → 2025-08-25 | Outpatient (CLI) | payer MEDICARE, MEDICAID ==
[~2025-08-25] MED LIST changes: +D3 H10003 PO; +DOXY-442 PO; -DOXY100C82 PO; -EZET10TA21 PO; +EZET10TA57 PO; -VITA100054 PO
== END ==
LOC: M WHC 11:17
PROVIDERS: ATTEND Physician Assistant Medical
DX: Z12.31 Encounter for screening mammogram for malignant neoplasm of breast (principal); R92.323 Mammographic fibroglandular density, bilateral breasts; Z95.0 Presence of cardiac pacemaker; Z79.899 Other long term (current) drug therapy; I10 Essential (primary) hypertension; E11.621 Type 2 diabetes mellitus with foot ulcer

== ENCOUNTER → 2025-08-25 | Outpatient (CLI) | payer MEDICARE, MEDICAID ==
[2025-08-25 14:30] LABS: BASO # 0.1 10^3/uL (0.0-0.2); BASO % 1.2 % (0.0-1.0); EOS # 0.3 10^3/uL (0.0-0.5); EOS % 3.7 % (0.0-3.0); LYMPH # 2.0 10^3/uL (1.5-5.0); LYMPH % 21.8 % (24.0-44.0); MONO # 0.8 10^3/uL (0.0-0.8); MONO % 8.1 % (2.0-8.0); NEUTROPHILS # 6.0 10^3/uL (1.5-8.5); NEUTROPHILS % 64.9 % (36.0-66.0); PLATELET COUNT, AUTOMATED 431 10^3/uL (150-450)
[2025-08-25 14:52] LABS: ALT/SGPT < 9 U/L (7.0-40); AST/SGOT 17 U/L (<34); CALCIUM LEVEL 9.3 MG/DL (8.3-10.6); CARBON DIOXIDE LEVEL 28 MMOL/L (20-31); CHLORIDE LEVEL 103 MMOL/L (98-107); CREATININE FOR GFR 0.94 MG/DL (0.55-1.30); GLOMERULAR FILTRATION RATE 61.7 (>39); POTASSIUM SERUM 4.8 MMOL/L (3.5-5.1); SODIUM LEVEL 137 MMOL/L (136-145)
[2025-08-25 14:55] LABS: ESTIMATED AVERAGE GLUCOSE 140.0 MG/DL (60-110)
== END ==
LOC: M PLALAB 11:20
PROVIDERS: ATTEND Physician Assistant Medical
DX: I10 Essential (primary) hypertension (principal); E11.621 Type 2 diabetes mellitus with foot ulcer